=== PATIENT | male | born 1945 | race Caucasian/White ===

== ENCOUNTER → 2016-07-16 | Outpatient (CLI) | payer OTHER ==
[~2016-07-16] VITALS: Ht 182.9 cm; Wt 92.5 kg
[~2016-07-16] MED LIST: ALLOPURINOL 30300 M1 PO; AMARYL4 MG PO; ASPIRIN EC81 M1 PO; ATORVASTATIN CA40 MG PO; CARAFATE 1 GM TA1 G1 PO; CIPROFLOXACIN500 M1 PO; GLUCOPHAGE1000 MG PO; GLUCOPHAGE500 MG PO; LISINOPRIL-HCT1 EAC1 PO; LOVASTAT20 PO; LOVASTAT40 PO; PRINZIDE 20-121 EACH PO; PROTONIX40 M2 PO
--- NOTE | ~2016-07-16 | CATHLAB ---
[facility] [address] [place] [address] INVASIVE PROCEDURE REPORT Name: KASI EVERETT Room #: REG CHARLIE Castillo#: [id number] Admission: 07/16/16 Attend Phys: Gianni Montilla, Discharge: Date of : 45 Date of Service: 07/16/16 0844 Report #: [id number] THIS REPORT FOR: //name// CC: Gianni Hinkle MD PROCEDURES: Left ventriculography, coronary angiography, abdominal aortography and unilateral lower extremity runoff. DESCRIPTION OF PROCEDURE: The patient brought to the catheterization lab with history of intermittent cardiomyopathy and abnormal nuclear test. Right groin prepped and draped in sterile manner. Extensively calcified femoral artery was able to cannulate eventually with a low-profile sheath. All exchanges over the wire. Straight pigtail catheter performed a single HORN ventriculogram and AP aortogram. Mildly ectatic aorta. LV function lower limits of normal, EF 50%. FL4 left coronary system, FR4 right coronary system. Multiple views and obliques were taken. Mild plaquing in the right dominant system. There was no significant occlusive disease noted. The distal aorta had what appeared to be extended from the distal aspect into the bilateral iliac system. Bilateral iliac arteries are blnsye-nz-rtgprkdlqi diseased and the external iliacs distal to the stents were calcified, but widely patent. I was not able to evaluate the left side. The right side through the vascular sheath did reveal mild disease and then a proximal SFA occlusion, which reconstitutes at the adductor canal through collateral filling. Well-preserved vessel at that point in 2 moderate diffuse disease in the trifurcation. It looks like the perineal branch is the best preserved and the posterior tibial branch also fills. The anterior tibial artery appears to be occluded. This is on the right lower extremity. Vascular sheath was removed with manual pressure. No indication for coronary intervention. We will evaluate the peripheral vasculature with Dr. Silver, who has previously seen this patient. Hemodynamically stable and pain-free. HEMODYNAMICS: Aortic 168/56, LV 160/8. IMPRESSION: 1. Left main, free of disease, giving rise to left anterior descending and circumflex. 2. Left anterior descending with mild plaquing proximal calcification extends around the apex. 3. Circumflex obtuse marginal is nondominant with mild disease. 4. Dominant right also minimal plaquing, giving rise to posterior descending artery. 5. Normal left ventricular size and systolic function lower limits of normal, EF 50%. 6. Abdominal aorta is intact with no aneurysm. Renal arteries are patent. Previously placed stents are into the distal aorta and extend of the common iliacs. These are patent bilaterally. [facility] [address] [place] [address] INVASIVE PROCEDURE REPORT Name: KASI EVERETT LESMARGE Room #: REG CL Anna#: [id number] Admission: 07/16/16 Attend Phys: Gianni Montilla, Discharge: Date of : 45 Date of Service: 07/16/16 0844 Report #: [id number] 7. Moderate disease in bilateral common femoral arteries with calcification extensively. 8. Right superficial femoral artery proximally occludes, reconstitutes at the adductor canal. 9. It looks to be single vessel runoff, perhaps one and half vessel runoff with some constitution of the peroneal branch appears to be patent with constitution of the posterior tibial artery. The anterior tibial artery is occluded. This is on the right lower extremity. I did not evaluate the left superficial femoral artery segment. RECOMMENDATIONS: Continue aggressive risk factor modification. We will do further evaluation noninvasively. We will continue moderate hydration here. Hold metformin for 48 hours. We would not want to proceed with any further contrast load until we further evaluate the need for any peripheral intervention. The stents in the distal aorta and common iliac are widely patent, with brisk flow. No lifting for 48 hours. No lying in tub, Jacuzzi or Castro for a week. Restart metformin 48 hours. <ELECTRONICALLY SIGNED> By: Gianni Montilla MD, FACC 07/18/16 1601 0844 1420 Gianni Montilla MD, FACC /nt
[2016-07-16 07:32] VITALS: BP 164/66
== END | disposition home or self-care (01) ==
LOC: CATH 06:46
DX: I25.10 Atherosclerotic heart disease of native coronary artery without angina pectoris (principal); I42.9 Cardiomyopathy, unspecified

== ENCOUNTER → 2016-12-16 | Outpatient (CLI) | payer OTHER ==
[~2016-12-16] VITALS: Ht 182.9 cm; Wt 94.3 kg
[~2016-12-16] MED LIST changes: +ZESTORETIC 20-1 EAC3 PO
--- NOTE | ~2016-12-16 | S ---
[facility] [address] SURGICAL PATH RPT PROCEDURE Name: KASI CHA Room #: REG CHARLIEEfrain Castillo#: [id number] Admission: 12/16/16 Date of : 45 Discharge: Report #: [id number] Path Case #: [id number] PATHOLOGY REPORT COLLECTION DATE: 12/16/2016 RECEIVED DATE: 12/16/2016 SUBMITTING PHYS: Dr. Perry Howe OTHER PHYS: Dr. 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 - Squamous mucosa with reactive changes. COMMENT: Co-review: Dr. Vika Duncan. (IUV:mml; 12/17/2016) PATHOLOGIST: Janneth Maza M.D. REPORT ELECTRONICALLY SIGNED BY: Janneth Maza M.D. DATE/TIME: 12/17/2016 16:45 * * * * * * * * * * * * GROSS PATHOLOGY: Received in formalin labeled "Kasi Cha, distal esophagus," and additionally labeled on the requisition as "r/o Last's esophagus," are 4 segments of madrigal soft tissue measuring 1.1 x 0.6 x 0.2 cm in aggregate dimensions and ranging from 0.2 to 0.5 cm in maximum dimension. The specimen is submitted entirely in cassette A1. (TSD; 12/16/2016) CLINICAL HISTORY: Last's esophagus INITIAL CPT CODE(S): A; 75121 Professional services performed by [facility] at [facility] [address], [place] [address] [facility] [address] [place] [address] SURGICAL PATH RPT PROCEDURE Name: KASI CHA Room #: REG CLI Brett.#: [id number] Admission: 12/16/16 Date of : 45 Discharge: Report #: [id number] Path Case #: [id number] Technical services performed by [facility] at [address] [place] [address], [facility] [address], [place] [address]. [facility] [address] [place] [address] PHONE: [phone] DIRECTOR: Galen Feliz M.D. * * * END OF REPORT * * *
--- NOTE | ~2016-12-16 | P ---
[facility] [address] [address] [place] [address] PROCEDURE REPORT Name: KASI EVERETT Room #: REG MARKEL Castillo#: [id number] Admission: 12/16/16 Attend Phys: Perry Gonzalez Discharge: Date of : 45 Report #: [id number] THIS REPORT FOR: //name// CC: Perry Hinkle DATE OF SERVICE: 12/16/2016 PROCEDURE PERFORMED: Upper endoscopy with biopsies. 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 He presents for a 3-year followup. He denies any symptoms at this time. DESCRIPTION OF PROCEDURE: The risks and benefits of the procedure were explained to the patient. Those risks including but not limited to bleeding, perforation, the risk of sedation. He understood these risks and gave informed consent. Sedation was given using propofol per anesthesia. Next, using a standard Managed Methodsn upper endoscope, the scope was placed in the patient's mouth and advanced under direct vision through the esophagus, stomach and into the second portion of the duodenum. The upper and mid esophagus was normal in appearance. In the distal esophagus, once again a 3 cm segment of Last's was noted. Random biopsies were obtained. Distal esophagus was somewhat tortuous. No evidence of esophagitis. Upon entering the stomach, a small hiatal hernia was noted. Overall, the gastric mucosa was normal. The pylorus was normal and patent. The duodenal bulb, first and second portion were all normal. The scope was then withdrawn and the procedure terminated. The patient tolerated the procedure well. IMPRESSION: 1. 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 2. Hiatal hernia. 3. Otherwise, normal upper endoscopy. RECOMMENDATIONS: 1. Await biopsy results. 2. Continue daily Protonix. Thank you for allowing me to participate in his care. <ELECTRONICALLY SIGNED> By: Perry Howe MD 12/17/16 1234 0837 23 Perry Howe MD /nt
== END | disposition home or self-care (01) ==
LOC: GI 06:58
DX: K22.70 Barrett's esophagus without dysplasia (principal); K44.9 Diaphragmatic hernia without obstruction or gangrene; I10 Essential (primary) hypertension; E11.9 Type 2 diabetes mellitus without complications; E78.5 Hyperlipidemia, unspecified; K21.9 Gastro-esophageal reflux disease without esophagitis; M10.9 Gout, unspecified; Z87.891 Personal history of nicotine dependence; Z79.899 Other long term (current) drug therapy; Z98.890 Other specified postprocedural states; Z79.82 Long term (current) use of aspirin
CPT/HCPCS: 62110; 62900

== ENCOUNTER 2019-02-05 19:59 | Emergency (ER) | payer OTHER ==
[~2019-02-05] VITALS: Ht 182.9 cm; Wt 90.7 kg
[2019-02-05] MEDS ORDERED: LISINOPRIL2.5 MG PO (20:04)
[2019-02-05] MEDS ORDERED: CRESTOR20 MG PO (20:04)
[2019-02-05 20:49] VITALS: BP 179/59
[2019-02-05] MEDS ORDERED: DIFLUCAN100 MG PO ×3 (21:03→21:11)
[2019-02-05] MEDS ORDERED: NYSTATIN100000 UNI SW&SWALLOW ×3 (21:03→21:11)
== END 2019-02-05 21:15 | disposition home or self-care (01) ==
LOC: ER 19:59
DX: B37.9 Candidiasis, unspecified (principal); I10 Essential (primary) hypertension; E78.5 Hyperlipidemia, unspecified; E11.9 Type 2 diabetes mellitus without complications; Z98.890 Other specified postprocedural states; M10.9 Gout, unspecified; Z87.891 Personal history of nicotine dependence

== ENCOUNTER 2019-03-22 23:03 | Inpatient (IN) | payer BC, OTHER ==
[~2019-03-22] VITALS: Ht 182.9 cm; Wt 83.2 kg
[~2019-03-22 23:03] MED LIST changes: +CRESTOR20 MG PO; +DIFLUCAN100 MG PO; +LISINOPRIL2.5 MG PO; +NYSTATIN100000 UNI SW&SWALLOW
[2019-03-22 23:06] VITALS: BP 124/72
[2019-03-22 23:26] LABS: HEMATOCRIT 46.8 % (42.0-52.0); HEMOGLOBIN 14.4 gm/dL (14.0-18.0); MCH 27.1 pg (26.0-34.0); MCHC 30.7 g/dL (28.0-37.0); MCV 88.1 fL (80.0-100.0); PLATELET COUNT 279 thou/uL (150-400); RBC 5.31 mil/uL (4.50-6.00); RDW 13.9 % (10.5-14.5); WBC 21.2 thou/uL (4.0-11.0)
[2019-03-22 23:32] LABS: CALCIUM 9.3 mg/dL (8.5-10.1); CREATININE 1.7 mg/dL (0.7-1.3)
[2019-03-22 23:41] LABS: TROPONIN-I 0.33 ng/mL (<0.06)
[2019-03-22 23:47] LABS: APTT 33.4 Seconds (24.5-32.8); INR 1.1; PROTIME 10.9 Seconds (9.3-11.4)
[2019-03-23] VITALS (94 sets, daily range): BP systolic 69–185; BP diastolic 42–120
[2019-03-23 00:13] LABS: ABSOLUTE NEUTROPHILS 2.5 thou/uL (1.4-8.2)
[2019-03-23 00:14] LABS: PLATELET ESTIMATE NORMAL
[2019-03-23 00:58] LABS: PHOSPHORUS 8.9 mg/dL (2.5-4.9)
[2019-03-23 01:08] LABS: BE(vivo) -9.8 mmol/L (-2 to +3); HCO3 19.1 mmol/L (22.0-26.0); PCO2 53.9 mmHg (35.0-45.0); PO2 78.3 mmHg (80.0-100.0); sO2 91.9 % (92.0-98.0)
[2019-03-23 01:09] LABS: pH 7.168 (7.360-7.450)
[2019-03-23 01:34] LABS: D-DIMER 4.47 ug/mLFEU (0.19-0.50); FIBRINOGEN 264.4 mg/dL (210-360)
[2019-03-23 02:30] LABS: BE(vivo) -2.7 mmol/L (-2 to +3); HCO3 23.5 mmol/L (22.0-26.0); PCO2 45.6 mmHg (35.0-45.0); PO2 65.5 mmHg (80.0-100.0); sO2 91.5 % (92.0-98.0)
--- NOTE | 2019-03-23 05:42 | NUR ---
0030 Patient arrived to the unit at approximately 0030 from the ED. 0200 Patient is opening his eyes at this time but is not following commands. Spouse is at bedside. 0245 Hypothermia protocol implemented at this time.
[2019-03-23 06:41] LABS: CALCIUM 9.3 mg/dL (8.5-10.1); CREATININE 1.6 mg/dL (0.7-1.3); MAGNESIUM 2.1 mg/dL (1.8-2.4); POTASSIUM 3.9 mmol/L (3.5-5.1)
[2019-03-23 06:45] LABS: TROPONIN-I 15.08 ng/mL (<0.06)
--- NOTE | 2019-03-23 08:30 | NUR ---
At 0830 PT reached goal temp of 33.0 degrees celsius.
[2019-03-23 08:53] LABS: HEMATOCRIT 30.9 % (42.0-52.0); MCH 27.2 pg (26.0-34.0); MCHC 31.8 g/dL (28.0-37.0); MCV 85.6 fL (80.0-100.0); RDW 13.2 % (10.5-14.5)
[2019-03-23 09:02] LABS: APTT 33.4 Seconds (24.5-32.8); INR 1.6; PROTIME 16.9 Seconds (9.3-11.4)
--- NOTE | 2019-03-23 09:04 | EKG ---
[place] [address] [facility] [place] [address] ELECTROCARDIOGRAM REPORT Name: KASI EVERETT CAMAK Room #: 240-P ADM IN M.R.#: [id number] Admission: 03/23/19 Attend Phys: Arthur Scott MD Discharge: Date of : 45 Report #: [id number] THIS REPORT FOR: //name// [facility] ED Test Date: 2019-03-22 Test Time: 23:07:48 Pat Name: KASI EVERETT Department: Room: 240 Gender: M Assistant Restaurant General Manager: nicola : 1945 Requested By: Elias Yeung Order Number: [id number] MD: Paco Landeros Measurements Intervals [place] Rate: 112 P: -82 FL: 52 QRS: -66 QRSD: 145 T: 118 QT: 361 QTc: 493 Interpretive Statements Sinus tachycardia Atrial premature complex IVCD, consider atypical RBBB LVH with IVCD, LAD and secondary repol abnrm Borderline prolonged QT interval Compared to ECG 09/23/2012 07:43:24 Atrial premature complex(es) now present QRS duration has widened early R-wave progression is present Electronically Signed On 03-23-2019 9:03:51 INJECTION MOULDING MACHINE OPERATOR by Paco Landeros [email or web address] <ELECTRONICALLY SIGNED> By: Paco Landeros MD, FACC 03/23/19 0903 2307 230 Paco Landeros MD, FACC /EPI
--- NOTE | 2019-03-23 09:08 | EKG ---
[address] [address] ELECTROCARDIOGRAM REPORT Name: KASI EVERETT IRINA Room #: 240-P ADM IN M.R.#: [id number] Admission: 03/23/19 Attend Phys: Arthur Scott MD Discharge: Date of : 45 Report #: [id number] THIS REPORT FOR: //name// [facility] Test Date: 2019-03-23 Test Time: 08:50:47 Pat Name: KASI EVERETT Department: Room: 240 P Gender: M Recruiter Manager: SHIRIN : 1945 Requested By: Piper Peterson Order Number: [id number] MD: Paco Landeros Measurements Intervals [place] Rate: 61 P: -34 NV: 148 QRS: -41 QRSD: 146 T: 132 QT: 578 QTc: 583 Interpretive Statements Sinus rhythm Left bundle branch block Leftward axis no previous ECGs available for comparison Electronically Signed On 03-23-2019 9:08:17 PIANO PROFESSOR by Paco Landeros [email or web address] <ELECTRONICALLY SIGNED> By: Paco Landeros MD, [facility] 03/23/19 0908 0850 0850 Paco Landeros MD, FACC /EPI
[2019-03-23 09:16] LABS: HEMOGLOBIN 9.8 gm/dL (14.0-18.0); PLATELET COUNT 98 thou/uL (150-400); WBC 4.4 thou/uL (4.0-11.0)
--- NOTE | 2019-03-23 09:16 | 2DMMODE ---
[facility] [place] [address] 2 D/M-MODE ECHOCARDIOGRAM Name: KASI EVERETT MARGE Room #: 240-P [facility] IN M.R.#: [id number] Admission: 03/23/19 Attend Phys: Arthur Scott, Discharge: Date of : 45 Report #: [id number] THIS REPORT FOR: //name// APPROVED REPORT Study performed: 03/23/2019 08:20:01 EXAM: Comprehensive 2D, Doppler, and color-flow Echocardiogram Patient Location: ICU Room #: 240 Status: routine BSA: 2.14 HR: 63 bpm BP: 162/76 mmHg Rhythm: LBBB Other Information Study Quality: Adequate Technically limited study due to limited mobility, patient on vent. Indications Status post cardiac arrest. CHF. Hx: DM, HTN, HLP. 2D Dimensions RVDd: 37.12 mm IVSd: 14.00 (7-11mm) LVOT Diam: 23.46 (18-24mm) LVDd: 56.46 mm PWd: 14.00 (7-11mm) LVDs: 51.23 (25-40mm) Aortic Root: 43.43 mm Volumes Left Atrial Volume (Systole) Single Plane 4CH: 43.17 mL Single Plane 2CH: 50.32 mL LA ESV Index: 25.00 mL/m2 Aortic Valve AoV Peak Gavin.: 1.11 m/s AO Peak Gr.: 4.92 mmHg LVOT Max P.26 mmHg LVOT Max V: 0.90 m/s ZACHARY Vmax: 3.52 cm2 AI Vmax: 2.86 m/s AI Spalding: 1.70 m/s2 [facility] [address] [place] [address] 2 D/M-MODE ECHOCARDIOGRAM Name: KASI EVERETT Room #: [address] [place] [address] [place] [facility]#: [id number] Admission: 03/23/19 Attend Phys: Arthur Scott, Discharge: Date of : 45 Report #: [id number] AI PHT: 486.47 ms Mitral Valve E/A Ratio: 0.6 MV Decel. Time: 171.82 ms MV E Max Gavin.: 0.44 m/s MV A Gavin.: 0.70 m/s MV PHT: 49.83 ms Tricuspid Valve RAP Estimate: 5.00 mmHg Left Ventricle The left ventricle is normal size. There is global hypokinesis of the left ventricle. Mild concentric left ventricular hypertrophy. Left ventricular systolic function is severely decreased. LVEF is 25%. Mild diastolic dysfunction is present (impaired relaxation pattern). Right Ventricle The right ventricle is normal size. The right ventricular systolic function is normal. Atria The left atrium size is normal. The right atrium size is normal. Aortic Valve The aortic valve is mildly sclerotic Mild aortic regurgitation. There is no aortic valvular stenosis. Mitral Valve The mitral valve is normal in structure. There is no mitral valve regurgitation noted. No evidence of mitral valve stenosis. Tricuspid Valve The tricuspid valve is normal in structure. There is no tricuspid valve regurgitation noted. Unable to assess PA pressure. Pulmonic Valve Pulmonic valve is not well visualized. There is no pulmonic valvular regurgitation. Great Vessels Aortic root is dilated at 4.3cm. Ascending aorta is not well visualized. IVC is normal in size and collapses >50% with [facility] [address] [place] [address] 2 D/M-MODE ECHOCARDIOGRAM Name: KASI EVERETT Room #: 240-P [facility] IN M.R.#: [id number] Admission: 03/23/19 Attend Phys: Arthur Scott, Discharge: Date of : 45 Report #: [id number] inspiration. Pericardium There is no pericardial effusion. <Conclusion> Left ventricular systolic function is severely decreased. There is global hypokinesis of the left ventricle. LVEF is 25%. Mild diastolic dysfunction The aortic valve is mildly sclerotic/ Mild aortic regurgitation, no stenosis. The mitral valve is normal in structure. No mitral valve regurgitation. Unable to assess pulmonary artery pressure. There is no pericardial effusion. <ELECTRONICALLY SIGNED> By: Paco Landeros MD, [facility] 03/23/1915 4 4 Paco Landeros MD, FACC /INF
[2019-03-23 09:40] LABS: ABSOLUTE NEUTROPHILS 2.7 thou/uL (1.4-8.2); METAMYELOCYTES 2 %; PLATELET ESTIMATE NORMAL
--- NOTE | 2019-03-23 10:41 | NUR ---
VASCULAR ACCESS CONSULTED FOR PICC PLACEMENT. PT'S LABS,MEDS,HISTORY,ORDER AND CONSENT VERIFIED. MARK BASILIC WAS WIDELY PATENT WITH USG. TL PICC TRIMMED TO 44CM INSERTED TO 1CM EXTERNAL. STAT CXR ORDERED. PT TOLERATED WELL.
--- NOTE | 2019-03-23 10:58 | NUR ---
CXR CONFIRMED PICC PLACEMENT, PICC RELEASED FOR IMMEDIATE USE TO REJI PERALTA PER PROTOCOL.
[2019-03-23 11:25] LABS: BE(vivo) -7.4 mmol/L (-2 to +3); HCO3 19.8 mmol/L (22.0-26.0); PCO2 45.8 mmHg (35.0-45.0); PO2 92.1 mmHg (80.0-100.0); sO2 95.8 % (92.0-98.0)
[2019-03-23 11:26] LABS: pH 7.253 (7.360-7.450)
[2019-03-23 13:28] LABS: ABSOLUTE NEUTROPHILS 3.7 thou/uL (1.4-8.2); BASOPHILS 0.6 % (0.0-2.0); EOSINOPHILS 0.1 % (0.0-3.0); HEMATOCRIT 43.6 % (42.0-52.0); LYMPHOCYTES 36.1 % (24.0-44.0); MCH 27.1 pg (26.0-34.0); MCHC 32.1 g/dL (28.0-37.0); MCV 84.4 fL (80.0-100.0); MONOCYTES 4.5 % (1.0-8.0); PLATELET COUNT 165 thou/uL (150-400); POLYS 58.7 % (36.0-66.0); RBC 5.17 mil/uL (4.50-6.00); RDW 13.5 % (10.5-14.5); WBC 6.3 thou/uL (4.0-11.0)
[2019-03-23 13:41] LABS: APTT 31.7 Seconds (24.5-32.8); INR 1.1; PROTIME 11.4 Seconds (9.3-11.4)
[2019-03-23 13:48] LABS: CALCIUM 8.9 mg/dL (8.5-10.1); CREATININE 2.1 mg/dL (0.7-1.3); MAGNESIUM 2.7 mg/dL (1.8-2.4)
[2019-03-23 13:50] LABS: POTASSIUM 2.6 mmol/L (3.5-5.1); TROPONIN-I 16.37 ng/mL (<0.06)
--- NOTE | 2019-03-23 16:16 | NUR ---
CM ASSESSMENT: CASE OPENED FOR DC PLANNING. CLINICAL INFO REVIEWED. PT ADMIT THRU ER EARLY AM. AT HOME WITH SPOUSE, CALLED 911 AND ALERT WHEN EMS ARRIVED, THEN LOST CONSCIOUSNESS-WAS IN PEA AND GIVEN EPI. INTUBATED AND NOW ON HYPOTHERMIA PROTOCOL. REQUIRING LEVOPHED FOR BP SUPPORT, ON PROPOFOL GTT AND INSULIN GTT. ECHO DONE AND CURRENT EF 10-15%. PER CARDIOLOGY NOTE, WILL NEED ISCHEMIC W/U PENDIING NEURO STATUS EVAL. PT LIVES WITH SPOUSE, IS RETIRED. INDEPENDENT IN CARE. SPIRITUAL CARE ALERTED TO PT AND FAMILY TO PROVIDE EMOTIONAL SUPPORT. UNCLEAR DC NEEDS AT PRESENT AND CASE MANAGEMENT TO FOLLOW FOR COORDINATION OF ANY DC NEEDS.
--- NOTE | 2019-03-23 18:28 | NUR ---
Resumed are at 0700. PT is on the vent. PT is breathing over the set rate of 18. Adequate sedation with propofol. Levophed gtt titrated to keep MAP between 65-80. Levophed titrated up to 20 and vasopression was initiated to keep MAP above 65. Insulin gtt titrated to keep blood sugars within parameters. NS initiated per Dr. Campuzano and Dr. Elias. Low urine output noted. Providers aware. PT reached goal cooling temp of 33 degress celsius at 0830. Arabella care was provided and the fecal mgmt system was adjusted. A PICC line was inserted in the right upper arm per Dr. Campuzano's order. gave phone consent. CVP monitoring was initiated. Replaced potassium with 40 of IVPB K per Dr. Campuzano. Family present intermittently through the day and were updated on PT condition. Questions answered and they verbalized understanding. Nurse will continue to monitor.
[2019-03-23 18:49] LABS: APTT 31.7 Seconds (24.5-32.8); INR 1.3
--- NOTE | 2019-03-23 19:45 | NUR ---
REVIEWED ALL DOCUMENTATION BY ARTURO HERNANDEZ RN.
[2019-03-23 20:10] LABS: ABSOLUTE NEUTROPHILS 5.6 thou/uL (1.4-8.2); BASOPHILS 0.4 % (0.0-2.0); HEMOGLOBIN 13.6 gm/dL (14.0-18.0); LYMPHOCYTES 36.1 % (24.0-44.0); MCH 27.3 pg (26.0-34.0); MCHC 32.3 g/dL (28.0-37.0); MCV 84.4 fL (80.0-100.0); MONOCYTES 4.1 % (1.0-8.0); PLATELET COUNT 177 thou/uL (150-400); POLYS 59.4 % (36.0-66.0); RBC 4.98 mil/uL (4.50-6.00); RDW 13.5 % (10.5-14.5); WBC 9.5 thou/uL (4.0-11.0)
[2019-03-23 20:33] LABS: CALCIUM 8.6 mg/dL (8.5-10.1); CREATININE 2.4 mg/dL (0.7-1.3); MAGNESIUM 2.3 mg/dL (1.8-2.4); PHOSPHORUS 2.8 mg/dL (2.5-4.9)
[2019-03-23 20:46] LABS: POTASSIUM 2.7 mmol/L (3.5-5.1); TROPONIN-I 12.93 ng/mL (<0.06)
[2019-03-24] VITALS (47 sets, daily range): BP systolic 96–164; BP diastolic 51–73
[2019-03-24 00:06] LABS: GLYCOHEMOGLOBIN (HGB A1C) 8.5 % (4.8-5.6)
[2019-03-24 01:38] LABS: ABSOLUTE NEUTROPHILS 7.5 thou/uL (1.4-8.2); BASOPHILS 0.3 % (0.0-2.0); HEMATOCRIT 40.6 % (42.0-52.0); HEMOGLOBIN 12.7 gm/dL (14.0-18.0); LYMPHOCYTES 33.2 % (24.0-44.0); MCHC 31.3 g/dL (28.0-37.0); MCV 86.1 fL (80.0-100.0); MONOCYTES 2.9 % (1.0-8.0); PLATELET COUNT 184 thou/uL (150-400); POLYS 63.6 % (36.0-66.0); RBC 4.71 mil/uL (4.50-6.00); RDW 13.8 % (10.5-14.5); WBC 11.8 thou/uL (4.0-11.0)
[2019-03-24 01:44] LABS: APTT 38.3 Seconds (24.5-32.8); INR 1.2
[2019-03-24 01:50] LABS: CREATININE 2.6 mg/dL (0.7-1.3); MAGNESIUM 2.1 mg/dL (1.8-2.4); POTASSIUM 3.4 mmol/L (3.5-5.1)
[2019-03-24 02:10] LABS: TROPONIN-I 9.57 ng/mL (<0.06)
[2019-03-24 05:05] LABS: BE(vivo) -13.4 mmol/L (-2 to +3); HCO3 15.9 mmol/L (22.0-26.0); PCO2 49.8 mmHg (35.0-45.0); PO2 169.8 mmHg (80.0-100.0); sO2 98.6 % (92.0-98.0)
[2019-03-24 05:08] LABS: pH 7.121 (7.360-7.450)
[2019-03-24 05:57] LABS: HEMATOCRIT 40.7 % (42.0-52.0); HEMOGLOBIN 13.1 gm/dL (14.0-18.0); MCH 27.3 pg (26.0-34.0); MCHC 32.2 g/dL (28.0-37.0); MCV 84.9 fL (80.0-100.0); PLATELET COUNT 148 thou/uL (150-400); RBC 4.79 mil/uL (4.50-6.00); RDW 13.6 % (10.5-14.5); WBC 12.3 thou/uL (4.0-11.0)
[2019-03-24 06:18] LABS: ALBUMIN 2.3 g/dL (3.4-5.0); CALCIUM 8.3 mg/dL (8.5-10.1); CREATININE 2.6 mg/dL (0.7-1.3); PHOSPHORUS 5.1 mg/dL (2.5-4.9); POTASSIUM 3.4 mmol/L (3.5-5.1); TOTAL BILIRUBIN 0.8 mg/dL (<0.1-1.0); TOTAL PROTEIN 5.9 g/dL (6.4-8.2)
--- NOTE | 2019-03-24 06:29 | NUR ---
Received report from offgoing RN and assumed patient care. Patient continues to be on hypothermia protocol and has Levophed and Vasopressin infusing along with an insulin drip and Propofol for sedation. Patient had 17 beats of V-tach and Dr. Montilla was notified. updated on care plan. Patient monitored closely throughout this shift.
[2019-03-24 06:57] LABS: ABSOLUTE NEUTROPHILS 8.4 thou/uL (1.4-8.2)
[2019-03-24 06:58] LABS: ANISOCYTOSIS 1+; PLATELET ESTIMATE DECREASED; POIKILOCYTOSIS 1+
--- NOTE | 2019-03-24 10:00 | NUR ---
DR. LIU CALLED THIS RN. STATES HE WILL LEAVE ALL OF THE FLUIDS THE SAME AND WILL ORDER SOME LASIX.
--- NOTE | 2019-03-24 10:09 | NUR ---
Nutrition: Pt NPO day 2. Consider initiation of enteral feeds as appropriate. Glucerna 1.2 to reach goal 75 mL/hr will meet needs.
[2019-03-24 11:26] LABS: BE(vivo) -6.4 mmol/L (-2 to +3); HCO3 21.5 mmol/L (22.0-26.0); PCO2 52.7 mmHg (35.0-45.0); PO2 119.2 mmHg (80.0-100.0); pH 7.228 (7.360-7.450); sO2 97.6 % (92.0-98.0)
[2019-03-24 11:30] LABS: URINE BILIRUBIN NEGATIVE (Negative); URINE BLOOD TRACE (Negative); URINE CLARITY CLEAR; URINE COLOR YELLOW; URINE GLUCOSE-RANDOM* NEGATIVE (Negative); URINE KETONES NEGATIVE (Negative); URINE LEUKOCYTES 1+ (Negative); URINE NITRITE NEGATIVE (Negative); URINE PROTEIN (DIPSTICK) TRACE (Negative); URINE SPECIFIC GRAVITY 1.025 (1.005-1.035); URINE UROBILINOGEN 0.2 E.U./dl (0.2-1.0)
[2019-03-24 11:33] LABS: URINE CREATININE-RANDOM* 84.2 mg/dL
[2019-03-24 11:47] LABS: AMORPHOUS URATES Moderate /LPF (None Seen); CASTS None Seen /LPF (None Seen); SQUAMOUS 0-3 Few /LPF (0-3); URINE RBC 0-2 Rare /HPF (0-2); URINE WBC 6-15 Few /HPF (0-5)
[2019-03-24 11:48] LABS: BACTERIA 1-9 Few /HPF (None Seen)
--- NOTE | 2019-03-24 11:53 | NUR ---
Called ABG results to DR. Ramirez. No new orders.
[2019-03-24 13:28] LABS: MAGNESIUM 1.9 mg/dL (1.8-2.4); POTASSIUM 3.3 mmol/L (3.5-5.1)
[2019-03-24] MEDS ORDERED: TOPROL XL25 MG PO (13:35)
--- NOTE | 2019-03-24 18:18 | NUR ---
PT OFF OF VASOPRESSIN GTT. STILL ON INSULIN, PROPOFOL,LEVO GTT. RE-WARMING PROCESS BEGAN AT 0840. SERIAL POTASSIUM DRAWN.
--- NOTE | 2019-03-24 19:00 | NUR ---
See Hypothermia flowsheet for hourly temperature readings and notes for 7p-7a shift.
[2019-03-25] VITALS (47 sets, daily range): BP systolic 94–136; BP diastolic 47–78
[2019-03-25 05:06] LABS: BE(vivo) 3.1 mmol/L (-2 to +3); HCO3 26.9 mmol/L (22.0-26.0); PCO2 38.4 mmHg (35.0-45.0); PO2 59.3 mmHg (80.0-100.0); pH 7.463 (7.360-7.450); sO2 92.2 % (92.0-98.0)
[2019-03-25 05:25] LABS: HEMOGLOBIN 11.9 gm/dL (14.0-18.0); MCH 26.7 pg (26.0-34.0); MCHC 32.2 g/dL (28.0-37.0); RBC 4.46 mil/uL (4.50-6.00); RDW 13.6 % (10.5-14.5); WBC 16.7 thou/uL (4.0-11.0)
[2019-03-25 05:50] LABS: ALBUMIN 2.1 g/dL (3.4-5.0); CALCIUM 7.9 mg/dL (8.5-10.1); CREATININE 3.4 mg/dL (0.7-1.3); PHOSPHORUS 5.5 mg/dL (2.5-4.9)
--- NOTE | 2019-03-25 09:38 | EKG ---
[place] [address] [address] [facility] [place] [address] ELECTROCARDIOGRAM REPORT Name: KASI EVERETT Room #: 240-P ADM IN M.R.#: [id number] Admission: 03/23/19 Attend Phys: El Campuzano Discharge: Date of : 45 Report #: [id number] THIS REPORT FOR: //name// [facility] Test Date: 2019-03-24 Test Time: 08:14:31 Pat Name: KASI EVERETT Department: Room: 240 P Gender: M Mercerizer Machine Operator: Hiro ALMONTE : 1945 Requested By: Piper Peterson Order Number: [id number] MD: Paco Landeros Measurements Intervals [place] Rate: 79 P: 41 CO: 463 QRS: -38 QRSD: 141 T: 137 QT: 478 QTc: 549 Interpretive Statements Sinus rhythm Left bundle branch block Leftward axis Prolonged QT interval Compared to ECG 03/23/2019 08:50:47 No significant change was found Electronically Signed On 03-25-2019 9:37:57 TRUSS DRIVER HELPER by Paco Landeros [email or web address] <ELECTRONICALLY SIGNED> By: Paco Landeros MD, [facility] 03/25/19 0937 3 3 Paco Landeros MD, [facility] /EPI
--- NOTE | 2019-03-25 14:47 | NUR ---
CONTINUES ON VENT WEANING FIO2 ABLE. REWARMED YESTERDAY. VASOPRESSIN GTT OFF, CONTINUE ON LEVOPHED, INSULIN AND BICARB AND PROPOFOL GTTS. FOLLOWING SIMPLE COMMANDS AT TIMES PER GENERAL EXPEDITOR. DR. ORELLANA COMMUNICATES WITH SPOUSE. UNCLEAR DC PLAN AT PRESENT.
--- NOTE | 2019-03-25 19:16 | NUR ---
DR. STARKS HERE. REPORTED PT MAY BE WEAKER ON RIGHT. NOC RN HERE. REPORT GIVEN.
--- NOTE | 2019-03-25 19:18 | NUR ---
PT PROGRESING TOWARDS GOALS. FOLLOWING COMMANDS INTERMITTENTLY. INSULIN GTT OFF. TITRATING DOWN ON LEVOPHED.
[2019-03-26] VITALS (32 sets, daily range): BP systolic 100–146; BP diastolic 56–82
[2019-03-26 05:47] LABS: ALBUMIN 2.3 g/dL (3.4-5.0); CALCIUM 7.6 mg/dL (8.5-10.1); PHOSPHORUS 6.9 mg/dL (2.5-4.9); POTASSIUM 5.4 mmol/L (3.5-5.1)
[2019-03-26 05:50] LABS: CREATININE 4.7 mg/dL (0.7-1.3)
--- NOTE | 2019-03-26 05:50 | NUR ---
Able to wean pt off Levophed by 0230; MAP remains >65. Pt running fever, 99.8 F axillary. Urine output adequate, approximately 60 cc per hour after Lasix given. Lungs remain coarse, though suctioning almost nothing per ET tube or orally. Pt still moves all ext. to command except right arm and hand. Leg strength appears equal.
--- NOTE | 2019-03-26 16:44 | NUR ---
CARE TEAM INDICATED THAT NEURO WAS CONSULTED. IT IS ANTICPATED THAT PT WILL REMAIN IN ICU SATUS OVER THE WEEKEND. CM TO FOLLOW INDICATED WITH DC PLANNING.
[2019-03-27] VITALS (24 sets, daily range): BP systolic 111–135; BP diastolic 52–74
[2019-03-27 05:32] LABS: BE(vivo) 5.9 mmol/L (-2 to +3); HCO3 30.3 mmol/L (22.0-26.0); PCO2 43.6 mmHg (35.0-45.0); PO2 103.1 mmHg (80.0-100.0)
[2019-03-27 05:40] LABS: HEMATOCRIT 31.7 % (42.0-52.0); MCH 26.6 pg (26.0-34.0); MCHC 31.6 g/dL (28.0-37.0); MCV 84.3 fL (80.0-100.0); PLATELET COUNT 148 thou/uL (150-400); RBC 3.76 mil/uL (4.50-6.00); RDW 13.7 % (10.5-14.5); WBC 18.1 thou/uL (4.0-11.0)
[2019-03-27 06:01] LABS: ALBUMIN 2.2 g/dL (3.4-5.0); CREATININE 5.5 mg/dL (0.7-1.3); PHOSPHORUS 6.7 mg/dL (2.5-4.9); POTASSIUM 4.2 mmol/L (3.5-5.1); TOTAL BILIRUBIN 1.6 mg/dL (<0.1-1.0); TOTAL PROTEIN 6.1 g/dL (6.4-8.2)
[2019-03-27 06:31] LABS: ABSOLUTE NEUTROPHILS 12.7 thou/uL (1.4-8.2); METAMYELOCYTES 1 %
[2019-03-27 10:53] LABS: BE(vivo) 6.7 mmol/L (-2 to +3); HCO3 31.2 mmol/L (22.0-26.0); PCO2 43.9 mmHg (35.0-45.0); PO2 98.3 mmHg (80.0-100.0); pH 7.469 (7.360-7.450); sO2 97.8 % (92.0-98.0)
--- NOTE | 2019-03-27 13:41 | NUR ---
CHECK WITH DR ORELLANA TO SEE IF OG TUBE OK TO USE FOR TUBE FEEDING. DR ORELLANA GAVE OK.
[2019-03-28] VITALS (12 sets, daily range): BP systolic 106–143; BP diastolic 55–67
[2019-03-28 04:55] LABS: ALBUMIN 2.2 g/dL (3.4-5.0); CALCIUM 8.6 mg/dL (8.5-10.1); PHOSPHORUS 6.5 mg/dL (2.5-4.9)
[2019-03-28 10:38] LABS: BE(vivo) 6.3 mmol/L (-2 to +3); PCO2 51.4 mmHg (35.0-45.0); PO2 108.6 mmHg (80.0-100.0); pH 7.412 (7.360-7.450); sO2 97.9 % (92.0-98.0)
--- NOTE | 2019-03-28 17:02 | NUR ---
ASSESSMENTS AND INTERVENTIONS DOCCUMENTED. PATIENT REMIANS INTUBATED. PATIENT FOLLOWING COMMANDS. WEANING TRIAL DONE TODAY, PATIENT TOLERATED IT BUT NIF WAS LOW. FAMILY UPDATED ABOUT POC.
[2019-03-29] VITALS (24 sets, daily range): BP systolic 109–165; BP diastolic 50–69
--- NOTE | 2019-03-29 02:43 | NUR ---
ASSESSMENTS CHARTED. MEDS GIVEN CHARTED. PATIENT REMAINS INTUBATED THROUGHOUT SHIFT. FOLLOWS COMMANDS APPROPRIATELY. LEFT SIDED WEAKNESS CONTINUES. PATIENT RECEIVING GOAL RATE TUBE FEEDING. DENIED PAIN DURING SHIFT. Q2 TURNS CHARTED. PLAN OF CARE IS TO CONTINUE DIURESING AND PROGRESSING OFF THE VENT.
[2019-03-29 05:26] LABS: HEMATOCRIT 33.1 % (42.0-52.0); HEMOGLOBIN 10.4 gm/dL (14.0-18.0); MCH 27.2 pg (26.0-34.0); MCHC 31.5 g/dL (28.0-37.0); MCV 86.3 fL (80.0-100.0); RBC 3.84 mil/uL (4.50-6.00); RDW 13.4 % (10.5-14.5); WBC 8.4 thou/uL (4.0-11.0)
[2019-03-29 05:46] LABS: ALBUMIN 2.1 g/dL (3.4-5.0); CALCIUM 8.6 mg/dL (8.5-10.1); CREATININE 5.5 mg/dL (0.7-1.3); PHOSPHORUS 6.3 mg/dL (2.5-4.9); POTASSIUM 4.6 mmol/L (3.5-5.1); TOTAL BILIRUBIN 1.1 mg/dL (<0.1-1.0); TOTAL PROTEIN 6.4 g/dL (6.4-8.2)
--- NOTE | 2019-03-29 10:23 | NUR ---
If pt not able to extubate, recommend new TF goal rate of 50ml/hr
[2019-03-29 11:45] LABS: BE(vivo) 6.9 mmol/L (-2 to +3); HCO3 32.9 mmol/L (22.0-26.0); PCO2 53.3 mmHg (35.0-45.0); PO2 92.3 mmHg (80.0-100.0); pH 7.408 (7.360-7.450)
--- NOTE | 2019-03-29 19:23 | NUR ---
pt self extabated at 0955 along with og tube. pt stable throughout day on nasal cannula at 2/3 L. family was on floor shorty after. physican informed. no IVF running. FMS/nelson in place. pt folling commands. right sided weaknes, plan for MRI in AM, MRI fax sent.
[2019-03-30] VITALS (13 sets, daily range): BP systolic 115–166; BP diastolic 54–67
--- NOTE | 2019-03-30 03:58 | NUR ---
Pt has been resting well, he does awaken with cares, his speech is improving, but is still having mild coughing with even the smallest amount of water with oral cares. Monitor reads SR, occasional BBB/PVC's, VSS, and afebrile. He remains on O2 at 2 L/m, adequate sats, diminished breath sounds. Active bowel sounds are noted, flexiseal in place. Henning is averaging approx 50 ml's/hr of clear yellow urine to DD. Fall precautions are being followed and pt is progressing on his plan of care.
[2019-03-30 05:03] LABS: ALBUMIN 2.3 g/dL (3.4-5.0); CALCIUM 8.9 mg/dL (8.5-10.1); CREATININE 5.7 mg/dL (0.7-1.3); PHOSPHORUS 6.4 mg/dL (2.5-4.9); POTASSIUM 4.9 mmol/L (3.5-5.1)
--- NOTE | 2019-03-30 10:25 | NUR ---
PATIENT MORE ALERT THIS MORTING, FORGETFUL AT TIMES. RIGHT ARM AND LEG WEAKNESS, ABLE TO ELECTRONIC ENGINEERING DRAFTSPERSON HAND. MRI COMPLETED. PLAN OF CARE DISCUSSED WITH FAMILY. NO SIGNS OF ACUTE DISTRESS NOTED AT THIS TIME. REPORT GIVEN TO ONCOMING RN. PATIENT TRANSFERRED TO CCU.
--- NOTE | 2019-03-30 12:11 | NUR ---
CARE TEAM INDICATED THAT PT HAD SELF EXTUBATED HIMSELF. PT TO HAVE MRI THIS DAY. PT WAS TRANSFERED FROM ICU TO CCU RM 219. THERAPY TO EVAL. CARE TEAM MENTIONED POSSIBLE EVAL FOR ACUTE REHAB. CM TO FOLLOW INDICATED WITH DC PLANNING.
--- NOTE | 2019-03-30 19:59 | NUR ---
ASSUMED CARE [id number], TRANFER FROM ICU, SHIFT ASSESSMENT DONE. SR ON MONITOR, 2LNC. RIGHT SIDED WEAKNESS, ABDUL IN PLACE. DENIES PAIN, NAUSEA, VOMITING. BEDBOUND FOR NOW. NSR WITH BBB ON MONITOR. HAD A BM, INCONTINENT OF BOWEL. ON NECTAR THICK LIQUID AND PUREED DIET, NEEDS TO BE FEED. ACHS, BLOOD SUGAR AWAS 392 FOR DINNER, DR ORELLANA CALLED, ORDER RECEIVED TO CHANGE FLUIDS TO D5 0.5 NS AT 75 MLS/ HR. WILL CONTINUE TO ASSESS AND ASSIST WITH ADLs NEEDED.
[2019-03-31 00:05] VITALS: BP 137/65
[2019-03-31 04:22] VITALS: BP 150/48
--- NOTE | 2019-03-31 05:07 | NUR ---
ASSUMED CARE AT 1900. PT WAS TRANSFERRED FROM ICU. A0 X 1. PT VERY PLEASANT BUT CONFUSED. PT DENIES PAIN. ON D5 1/2 NS FLUIDS AT 75MLS/HR. Q2 TURNS. PT EXHIBITS SLOWNESS IN RESPONSE. VITALS STABLE. DENIES N/V/D. DENIES CHEST PAIN. NO FURTHER C/O REPORTED. WILL CONTINUE TO FOLLOW POC.
[2019-03-31 05:08] LABS: ALBUMIN 2.2 g/dL (3.4-5.0); CALCIUM 8.6 mg/dL (8.5-10.1); CREATININE 4.9 mg/dL (0.7-1.3); PHOSPHORUS 4.5 mg/dL (2.5-4.9); POTASSIUM 4.1 mmol/L (3.5-5.1)
--- NOTE | 2019-03-31 07:32 | HC ---
[facility] [place] [address] [place] [address] CONSULTATION Name: KASI EVERETT Room #: 219-P ADM IN M.R.#: [id number] Admission: 03/23/19 Attend Phys: El Campuzano Discharge: Date of : 45 Report #: [id number] THIS REPORT FOR: //name// CC: Arthur Hinkle REASON FOR CONSULTATION: Acute kidney injury, status post cardiac arrest. REASON FOR PRESENTATION: Post-cardiac arrest. HISTORY OF PRESENT ILLNESS: This was obtained from the medical chart. The patient is currently intubated and going through the hypothermia protocol. He is a 73-year-old who is followed by Dr. Montilla due to cardiomyopathy and mild coronary artery disease. He has a history of congestive heart failure with ejection fractions of around 25%. He is also known to have hypertension, diabetes mellitus, and hypertension. He reported to his some chest pain and shortness of breath. EMS was called. On arrival of the EMS, the patient was alert and oriented; however, he went into an unresponsive status in the presence of the EMS staff. Initial monitor revealed PA. The patient was given one round of epinephrine and CPR was initiated. The patient's creatinine on presentation one was 1.6. Hypothermia protocol was initiated. The patient was admitted to the ICU. He is currently running into some issues with low urine output. He is maintained on 2 pressors. I am being consulted to manage his acute kidney injury. HOME MEDICATIONS: 1. Lisinopril. 2. Metformin. 3. Glimepiride. 4. Crestor. PAST MEDICAL HISTORY: 1. Cardiomyopathy. 2. Coronary artery disease. 3. Peripheral vascular disease. 4. Carotid arterial disease. 5. Hypertension. 6. Post-cardiac arrest. 7. Diabetes mellitus, maintained on metformin. 8. Multiple coronary procedures in the past. 9. Bilateral iliac occlusions with stents. 10. Distal aortic stents. 11. Last's esophagus. 12. Hiatal hernia repair. REVIEW OF SYSTEMS: Unobtainable given the patient's current mental status. [facility] [address] [address] CONSULTATION Name: MARGUERITEKASI Room #: 219-P [facility] IN M.R.#: [id number] Admission: 03/23/19 Attend Phys: El Campuzano Discharge: Date of : 45 Report #: [id number] SOCIAL HISTORY: He lives with his . No reported drug or alcohol abuse. ALLERGIES: Per medical records, none. FAMILY HISTORY: Unobtainable given the patient's current mental status. PHYSICAL EXAMINATION: GENERAL: The patient is currently intubated on 2 pressors. VITAL SIGNS: Blood pressure is 112/53. HEAD AND NECK: ET tube in place. CHEST: Decreased air entry bilaterally. CARDIOVASCULAR: No rub detected. ABDOMEN: Soft, nontender. EXTREMITIES: Lower extremities, +3 edema. LABORATORY DATA: Reviewed. White blood cell count 12.3, platelet 148. Blood gas from today showed a pH of 7.1 with a lactate of 5.6. Sodium was 142, potassium was 3.4, BUN is 22, creatinine is 2.6, and phosphorus is 5.1. Chest x-ray reviewed with very mild vascular congestions. IMPRESSION AND PLAN: 1. Acute kidney injury. 2. Chronic kidney disease. 3. Status post cardiac arrest. 4. Cardiomyopathy. 5. Respiratory failure. 6. Hypokalemia. 7. Diabetes mellitus. 8. Peripheral vascular disease with multiple stents placement in the past. 9. We will initiate the appropriate workup for his acute kidney injury; however, this all seems to be ATN related to his cardiac arrest. 10. Continue with the current pressors. 11. The patient is being rewarmed. 12. Full evaluation will be carried out after the rewarming process is completed. 13. Bicarbonate drip was initiated for his acidosis. 14. Severe cardiomyopathy compromising his overall condition. 15. Replace potassium. 16. Initiate IV diuresis. <ELECTRONICALLY SIGNED> By: Nancy Elias MD 03/31/19 0732 [id number] Nancy Elias MD /nt
[2019-03-31 08:00] VITALS: BP 149/79
[2019-03-31 11:55] VITALS: BP 153/58
[2019-03-31 16:37] VITALS: BP 149/56
--- NOTE | 2019-03-31 17:29 | NUR ---
ASSUMED CARE AT 0700, SHIFT ASSESSMENT DONE, MEDS GIVEN, VSS. ACHS, COVERAGE PER PROTOCOL. RIGHT SIDED WEAKNESS, ON 2L NC, ABDUL IN PLACE, ADEQUAATE URINE OUTPUT, BM TODAY. NSR ON TELE. Q2 TURNS, WILL CONTINUE TO ASSESS AND ASSIST WITH ADLs NEEDED.
[2019-03-31 19:55] VITALS: BP 127/60
[2019-04-01 03:14] VITALS: BP 144/84
[2019-04-01 03:54] LABS: ALBUMIN 2.3 g/dL (3.4-5.0); CALCIUM 9.3 mg/dL (8.5-10.1); CREATININE 4.5 mg/dL (0.7-1.3); PHOSPHORUS 3.7 mg/dL (2.5-4.9); POTASSIUM 3.5 mmol/L (3.5-5.1)
--- NOTE | 2019-04-01 04:10 | NUR ---
Assumed care at 1900. pt alert x 3 . intermittent confusion. Denies pain. Denies SOB, no chest pain reported. Pt incontinent x 2 Diarrhea.q2 turns done. pt concern is to dc soon as possible. Noted beginning of skin breakdown to the bottom. No open sores, barrier cream applied. Will continue with current plan of care.
[2019-04-01 08:00] VITALS: BP 155/55
[2019-04-01 12:00] VITALS: BP 154/57
--- NOTE | 2019-04-01 14:05 | NUR ---
Case discussed with the care team. [facility] can accept the pt and pt is agreeable for rehab stay pending insurance approval. [facility] has a bed today and [facility] is submitting auth request today. The attending is agreeable if auth obtained.
[2019-04-01 16:00] VITALS: BP 158/58
--- NOTE | 2019-04-01 19:35 | NUR ---
ASSUMED CARE AT 0700, SHIFT ASSESSMENT DONE, MEDS GIVEN, VSS. BLOOD SUGAR WAS HIGH THIS AM AND FOR LUNCH, DR ORELLANA INFORMED, SLIDING SCALE INCREASED TO MODERATE DOSE. RIGHT SIDED WEAKNESS, INCONTINENT OF BOWEL, HAD THREE BM TODAY. NSR ON TELE, REMAINS ON 2LNC. WILL CONTINUE TO ASSESS AND ASSIST WITH ADLs NEEDED.
[2019-04-01 19:37] VITALS: BP 134/50
[2019-04-02 04:15] VITALS: BP 169/56
[2019-04-02 04:41] LABS: ALBUMIN 2.3 g/dL (3.4-5.0); CALCIUM 8.7 mg/dL (8.5-10.1); CREATININE 3.9 mg/dL (0.7-1.3); PHOSPHORUS 4.2 mg/dL (2.5-4.9); POTASSIUM 3.3 mmol/L (3.5-5.1)
--- NOTE | 2019-04-02 07:41 | NUR ---
ASSUMED PT CARE AT 1900, PT ALERT AND ORIENTED MAKES NEEDS KNOWN, ASSESSMENTS CHARTED, NO COMPLIANS OF PAIN, WILL CONTINUE TO MONITOR
[2019-04-02 08:00] VITALS: BP 16/57
--- NOTE | 2019-04-02 12:15 | NUR ---
ASSUMED CARE AT 0700, SHIFT ASSESSMENT DONE, MEDS GIVEN, VSS. DENIES PAIN, NAUSEA, VOMITING. WORKED WITH PHYSICAL AND OCCUPATIONAL THERAPHY, TRANSFERRED TO THE COMMODE WITH 2 PERSON ASSIST. RECEIVING IV FLUIDS FOR HIGH SODIUM, REMAINS ON 2L NC. WILL CONTINUE TO ASSESS AND ASSIST WITH ADLs NEEDED.
[2019-04-02 12:20] VITALS: BP 154/50
--- NOTE | 2019-04-02 12:57 | NUR ---
CALL RECEIVED FROM PATIENT'S INSURANCE THIS DATE. SPOKE WITH SUN PHONE [phone]. PATIENT IS APPROVED FOR 7 DAYS FOR ACUTE REHAB. LIAISON WAS INFORMED THAT [facility] NOT IN NETWORK WITH PATIENT'S INSURANCE AND WOULD BE PAID AT 50% WHERE IN-NETWORK FACILTIY IS PAID AT 80%. AUTHORIZATION CAN BE TRANSFERRED TO IN-NETWORK FACILITY BY CALLING SUN AT ABOVE NUMBER. [employer] SALES BEAUTY ADVISOR INFORMED.
--- NOTE | 2019-04-02 13:30 | NUR ---
Insurance auth obtained and the hospital will match benefits with is plan per the [facility] liason. Care team updated. Pt is aware of dc to [facility] today and agreeable. updated via phone.
[2019-04-02] MEDS ORDERED: LIPITOR40 MG PO (13:33)
[2019-04-02] MEDS ORDERED: AMLODIPINE BESY10 MG PO (13:33)
[2019-04-02] MEDS ORDERED: ELIQUIS5 MG PO (13:33)
[2019-04-02] MEDS ORDERED: METOPROLOL SUCC50 MG PO (13:33)
[2019-04-02] MEDS ORDERED: PACERONE 200 M200 M1 PO (13:33)
--- NOTE | 2019-04-02 13:44 | EEG ---
[facility] [place] [address] ELECTROENCEPHALOGRAM Name: KASI EVERETT Room #: 219-P ADM IN M.R.#: [id number] Admission: 03/23/19 Attend Phys: El Oates Discharge: Date of : 45 Report #: [id number] THIS REPORT FOR: //name// CC: El Hinkle DATE OF SERVICE: 03/25/2019 This patient is being evaluated for hypoxic encephalopathy. EEG was done by placing the electrode by standard 10-20 system of electrode placement. Both referential and sequential montages were used for recording. A lot of electronic artifact is present, but well-defined cortical activity is seen. It appeared to be about 5-6 Hz. The patient was drowsy and it became slower. Throughout the record, no active epileptiform activity was noticed. IMPRESSION: This patient's EEG is difficult to interpret because of the artifact, but it demonstrates well-defined cortical activity on both sides. Thank you very much for this referral. <ELECTRONICALLY SIGNED> By: Christ Jama MD 04/02/19 1344 9 Christ Jama MD /nt
--- NOTE | 2019-04-02 13:44 | HC ---
[facility] [place] [address] [place] [address] CONSULTATION Name: KASI EVERETT Room #: 219-P ADM IN M.R.#: [id number] Admission: 03/23/19 Attend Phys: El Campuzano Discharge: Date of : 45 Report #: [id number] THIS REPORT FOR: //name// CC: El Hinkle DATE OF SERVICE: 03/25/2019 HISTORY OF PRESENT ILLNESS: This is a 73-year-old male patient who was seen by me to prognosticate this patient for hypoxic encephalopathy. This patient is unable to provide any history. I talked to the nurses. There is no family member available. It looks like this patient was admitted on 03/22/2019 with a cardiac arrest. He underwent a cooling protocol and Neurology consult is being requested for prognostication in that regard. According to the nurses, the patient is not on sedation. He has become progressively more responsive during the day. On my examination, also he is able to follow simple commands. The worrisome feature was that he did not success coach with the right hand. He did success coach with the left hand. He is still on Levophed, but that is being tapered off. Blood pressure is somewhat low, but in acceptable range. REVIEW OF SYSTEMS: Indicates that this patient is being followed by multiple consultants. He had acute kidney injury for which he is being followed by Nephrology. He is being followed by a potable water treatment operator with cardiomyopathy. He has a history of hypertension. He does have a history of diabetes, peripheral vascular disease, Last's esophagus and now he is post-cardiac arrest. This was his relevant 14-point review of system, the best I can tell. PAST MEDICAL HISTORY: Positive for cardiac problem. FAMILY HISTORY: Unavailable. SOCIAL HISTORY: Also unavailable except from the record and apparently there is no drug or alcohol abuse and he lives with his . PHYSICAL EXAMINATION: Indicates that he is able to follow simple commands. He did reasonably persistently but he did not follow any complex command. He moved his eyes in multiple directions. He moved both his legs, although he was very weak there. He moved his left arm somewhat, but he did not move his right arm, but it is difficult to confirm because his cooperation is not very poor. He is still intubated. He is still on Levophed. His vital signs indicate last blood pressure 108/63, respiration is 28, pulse is 110. LABORATORY DATA: Indicates a white count of 16.7. He did not have any imaging study of the brain. IMPRESSION: Hypoxic encephalopathy from which [place] [address] CONSULTATION Name: KASI EVERETT Room #: 219-P [facility] IN M.R.#: [id number] Admission: 03/23/19 Attend Phys: El Campuzano Discharge: Date of : 45 Report #: [id number] Somewhat worrisome feature is that he does appear to have some focality as he did not success coach with the right hand at all, where he did success coach some with the left hand. Because of that, a noncontrast CT of the head should be done. He needs to be cleared by Cardiology and fabrication supervisor and hospitalist need to feel comfortable to send him down. If he did have a stroke, there is a little thing you can do because the timing of the onset may be on when he arrested, but we need to make sure there is no hemorrhage or no other situation. If the stroke can be excluded, then the focal causes can be considered and sometime repeat examination is different. We will follow this patient along with you, and hopefully, once Cardiology, fabrication supervisor and patient experience coordinator clear, we can do a noncontrast CT of the head. It maybe tomorrow because he needs to come off his Levophed preferably and needs to be stable as far as the blood pressure is concerned. Thank you very much for this referral. <ELECTRONICALLY SIGNED> By: Christ Jama MD 04/02/19 1344 [id number] [id number] Christ Jama MD /nt
--- NOTE | 2019-04-02 15:55 | NUR ---
ASSUMED CARE OF PT APPROX 1330, A&0X4, NO C/O PAIN OR ANY OTHER NEEDS THAN A SNACK. EDU ON CHEWING AND HAVING SMALL BITES AND SETTING THE FOOD DOWN WHILE CHEWING. RLE, NOTED BY PT, 'BOGGY' AND SLIGHLY PAINFUL TO TOUCH, NO OPEN AREAS. REPOSITIONING EVERY 2H AT LEAST EVEN WITH SMALL POSITION CHANGES. HES AN ASSIST X2 FOR TRANSFERS. SLIGHTLY FORGETFUL. ABDUL CATH IN PLACE FOR STRICT I&0. PT CAN ANSWER MOST QUESTIONS THEN SEEMS FORGETFUL ON AMB STATUS PRIOR TO ADMISSION AND ON CONTINENCE (IN LAYMENS TERMS). ENCOURAGED HIM TO USE CALL LIGHT FOR ANY NEEDS AND HE DOES RETURN DEMO SUCCESSFULLY
[2019-04-02 16:00] VITALS: BP 155/52
== END 2019-04-02 18:02 | DRG 207 ==
LOC: ER → EROBS 03-23 00:26 → 2N 03-23 00:26 → ICU 03-23 00:26 → 2N 03-23 00:26 → ICU 03-23 00:30 → 2N 03-30 10:23
PROVIDERS: Emergency Medicine; Hospitalist; Internal Medicine; Internal Medicine Nephrology; Internal Medicine Pulmonary Disease; Nurse Practitioner Family; Pediatrics; ADMIT Hospitalist
PROC: 0BH17EZ Insertion of Endotracheal Airway into Trachea, Via Natural or Artificial Opening (ICD-10-PCS; principal; 2019-03-23)
PROC: 02HV33Z Insertion of Infusion Device into Superior Vena Cava, Percutaneous Approach (ICD-10-PCS; principal; 2019-03-23)
PROC: 5A1955Z Respiratory Ventilation, Greater than 96 Consecutive Hours (ICD-10-PCS; principal; 2019-03-23)
PROC: B548ZZA Ultrasonography of Superior Vena Cava, Guidance (ICD-10-PCS; principal; 2019-03-23)
DX: J96.21 Acute and chronic respiratory failure with hypoxia (principal); I46.9 Cardiac arrest, cause unspecified; N17.0 Acute kidney failure with tubular necrosis; I63.532 Cerebral infarction due to unspecified occlusion or stenosis of left posterior cerebral artery; I42.9 Cardiomyopathy, unspecified; G93.1 Anoxic brain damage, not elsewhere classified; I13.0 Hypertensive heart and chronic kidney disease with heart failure and stage 1 through stage 4 chronic kidney disease, or unspecified chronic kidney disease; E87.2 Acidosis; G81.91 Hemiplegia, unspecified affecting right dominant side; E87.0 Hyperosmolality and hypernatremia; J96.22 Acute and chronic respiratory failure with hypercapnia; E11.22 Type 2 diabetes mellitus with diabetic chronic kidney disease; E78.5 Hyperlipidemia, unspecified; E11.51 Type 2 diabetes mellitus with diabetic peripheral angiopathy without gangrene; K22.70 Barrett's esophagus without dysplasia; I95.9 Hypotension, unspecified; E87.6 Hypokalemia; J44.9 Chronic obstructive pulmonary disease, unspecified; I25.10 Atherosclerotic heart disease of native coronary artery without angina pectoris; I50.9 Heart failure, unspecified; E11.65 Type 2 diabetes mellitus with hyperglycemia; K21.0 Gastro-esophageal reflux disease with esophagitis; E87.5 Hyperkalemia; R13.10 Dysphagia, unspecified; I35.8 Other nonrheumatic aortic valve disorders; I48.0 Paroxysmal atrial fibrillation; Z95.820 Peripheral vascular angioplasty status with implants and grafts; Z79.899 Other long term (current) drug therapy; Z79.84 Long term (current) use of oral hypoglycemic drugs; Z95.5 Presence of coronary angioplasty implant and graft; Z87.891 Personal history of nicotine dependence; Z83.3 Family history of diabetes mellitus; Z82.49 Family history of ischemic heart disease and other diseases of the circulatory system
CPT/HCPCS: 10078; 10081; 27000

== ENCOUNTER 2019-04-02 14:03 | Inpatient (IN) | payer BC, OTHER ==
[~2019-04-02] VITALS: Wt 86.9 kg
[~2019-04-02 14:03] MED LIST changes: +AMLODIPINE BESY10 MG PO; +ELIQUIS5 MG PO; +LIPITOR40 MG PO; +METOPROLOL SUCC50 MG PO; +PACERONE 200 M200 M1 PO; +TOPROL XL25 MG PO
[2019-04-02 19:18] VITALS: BP 134/53
--- NOTE | 2019-04-02 21:37 | NUR ---
PT ADMITTED TO UNIT AT APPROXIMATELY 1800. REPORT RECEIVED FROM KATHRYN MENDOZA PRIOR TO PT BEING TRANSFERED TO UNIT. SIGNED CONSENTS WHILE ON UNIT. PT DENIES PAIN. PT ORIENTED TO UNIT. BEDSIDE REPORT WITH ONCOMING NURSE DISCUSSED REPORT FROM PREVIOUS NURSE AND ORDERS. FALL PRECAUTIONS IN PLACE AND NURSING WILL CONTINUE TO MONITOR.
--- NOTE | 2019-04-03 03:05 | NUR ---
PT ASSESSMENT COMPLETED AND VSS. MEDS GIVEN ORDERED AND WELL TOLERATED. FALL PRECAUTIONS IN PLACE. ABDUL DRAINING MODERATE AMOUNT OF YELLOW URINE. SLEEPING. DENIES NEEDS. TOLERATING NECTOR THICK LIQUIDS. WILL CONTINUE TO MONITOR FREQUENTLY.
[2019-04-03 05:50] LABS: HEMATOCRIT 27.9 % (42.0-52.0); HEMOGLOBIN 8.9 gm/dL (14.0-18.0); MCV 87.5 fL (80.0-100.0); RBC 3.19 mil/uL (4.50-6.00); RDW 13.6 % (10.5-14.5); WBC 10.6 thou/uL (4.0-11.0)
[2019-04-03 06:09] LABS: ALBUMIN 2.2 g/dL (3.4-5.0); CALCIUM 8.9 mg/dL (8.5-10.1); CREATININE 3.4 mg/dL (0.7-1.3); PHOSPHORUS 3.5 mg/dL (2.5-4.9); POTASSIUM 3.2 mmol/L (3.5-5.1)
[2019-04-03 09:00] VITALS: BP 153/67
--- NOTE | 2019-04-03 14:30 | NUR ---
ASSUMED CARE AT 0700. PATIENT IS ALERT AND ORIENTED X2. PATIENT IS VERY FORGETFUL. PATIENT HAS RIGHT SIDED WEAKNESS. LUNGS ARE DEMINISHED. PATIENT HAS RIGHT PICC. PATIENT CONTINUES ON RESPIRATORY TX. ABD IS SOFT WITH BSX4. PATIENT IS WAS INCONTINENT OF STOOL X1 TODAY WITH P.T. PATIENT IS UP TO THE DINING ROOM WITH ST. PATIENT TOOK MEDS 1 AT A TIME WITH APPLESAUCE AND NECTAR THICK LIQUIDS. PATIENT ALSO HAS RIGHT FACIAL DROOP. FALL AND SAFETY PROTOCOLS IN PLACE. DENIES ANY PAIN AT THIS TIME. CONTINUES TO PROGESS SLOWLY TOWARDS D/C GOALS. WILL CONTINUE TO MONITER.
--- NOTE | 2019-04-04 03:32 | NUR ---
ASSUMED CARE AT APPROX 1900 EVENING 04/03. PT AWAKE, ALERT AND ORIENTED AT CHANGE OF SHIFT. PT APPROPRIATE AND COOPERATIVE. ABDUL TO DD WITH YELLOW URINE TO BAG. PT TOOK HS MEDS WITH APPLESAUCE TOLERATING WELL. PT HAD INCONTINENT BM TONIGHT. ASSISTED WITH CLEANING AND REPOSITIONING,. PT APPEARS TO BE SLEEPING SOUNDLY WITH HOURLY ROUNDING CHECKS. BED ALARM ON AND CALL LIGHT IN REACH. WILL CONTINUE TO MONITOR.
[2019-04-04 05:36] LABS: ALBUMIN 2.4 g/dL (3.4-5.0); CALCIUM 9.1 mg/dL (8.5-10.1); CREATININE 3.2 mg/dL (0.7-1.3); PHOSPHORUS 4.1 mg/dL (2.5-4.9); POTASSIUM 3.7 mmol/L (3.5-5.1)
[2019-04-04 08:02] VITALS: BP 143/59
[2019-04-04 19:45] VITALS: BP 150/64
--- NOTE | 2019-04-04 20:13 | NUR ---
ASSUMED CARE OF PT AT 0705. PT IS A&OX3 AND VITAL SIGNS ARE STABLE. PT DENIES PAIN. ABDUL CATHETER IN PLACE AND DRAINING APPROPRIATELY WTIH ADEQUATE URINE OUTPUT. PT HAS INCREASED THIRST, NECTAR THICK LIQUIDS. PICC LINE TO RIGHT UPPER ARM, NO ORDERS FOR IV MEDICATIONS AT THIS TIME. SIGNIFICANT RIGHT SIDED WEAKNESS. MAX 2 ASSIST TO PIVOT TRANSFER. MEDICATIONS WITH APPLESAUCE TOELRATED WELL. NON-PRODUCTIVE COUGH, LUNG SOUNDS CLEAR BILATERALLY IN ALL LOBES. ACCU CHECK ACHS AND MANAGED WITH INSULIN. FAMILY AT BEDSIDE. FALL PRECAUTIONS IN PLACE AND NURSING WILL CONTINUE TO MONITOR.
--- NOTE | 2019-04-05 01:03 | NUR ---
PT ASSESSMENT COMPLETED AND VSS. MEDS GIVEN ORDERED AND WELL TOLERATED. FALL PRECAUTIONS IN PLACE. ASST WITH REPOSITION. ABDUL DRAINING MODERATE AMOUNT OF YELLOW URINE. ASST WITH REPOSITION FOR COMFORT. SNACK PROVIDED WITH INSULIN. PT STATES THAT HE IS VERY THIRSTY EVEN THOUGH HE HAS BEEN DRINKING A LOT. TOLERATING NECTOR THICK WATER. SLEEPING WELL. DENIES NEEDS. WILL CONTINUE TO MONITOR FREQUENTLY.
--- NOTE | 2019-04-05 07:54 | NUR ---
PT WITH WOUNDS TO THE SCROTUM, R BUTTOCK, SACRUM, AND SOFT HEELS. PICTURES TAKEN. TREATING PLANT SUPERVISOR CONSULTED. PT WITH LOOSE STOOL DURING THE NIGHT. PT MAY HAVE CDIFF. SAMPLE NEEDED. PT STATES THAT HE HAS HAD CDIFF IN THE PAST. HE THINKS IT WAS 2 YEARS AGO. CONTACTED PROOF CARRIER DOC. PER ORDERS WILL HAVE SAMPLE OF NEXT BM SENT TO THE LAB FOR CDIFF TESTING. ISOLATION CART ORDERED UNTIL CDIFF IS RULED OUT. INFORMED DAY RNRIGO, AND DR ELLIOTT.
[2019-04-05 08:52] VITALS: BP 128/44
--- NOTE | 2019-04-05 08:52 | NUR ---
VASCULAR ACCESS ROUNDING- THIS PATIENT IS OFF ALL IV MEDS, RECOMMEND REMOVAL OF TRIPLE LUMEN PICC TO DECREASE RISK OF INFECTION IF LINE IS NO LONGER NECESSARY
--- NOTE | 2019-04-05 09:39 | NUR ---
unable to visit with pt, out of his room.
--- NOTE | 2019-04-05 11:48 | NUR ---
CONFIRMED WITH SLEEVER LINE IS NO LONGER NEEDED AND OK TO D/C. LINE DISCONTINUED PER POLICY
--- NOTE | 2019-04-05 14:15 | NUR ---
Nutrition: Assessed d/t consult for poor intake. Admit: multiple L watershed infarcts. S/p cardiac arrest, extubated 03/29. Having weakness, mention of DOMINIQUE and swallowing deficits. On a pureed, renal, 1800 kcal carb controlled diet w/ nectar thick liquids. Recent BM 04/04. Eating 75-100% of most every meal. 88% meal average per last 14 recorded meals since 03/31. Per latest 04/04 labs: K+ 3.7 (WNL) Phos 4.1 (WNL, down from 6.4) Given extreme dysphagia and other diet/liquid restrictions, strongly recommend removing renal diet restrictions as K+ and Phos both normalized. Tried to obtain food preferences, but pt states "just a variety." Limited in what oral supplements he can consume d/t thickened liquid need. RD suggests regular vanilla pudding w/ Beneprotein modular added in. Pt in agreement. Will send BID at lunch, dinner. If phos trends back up will remove pudding. Low nutrition risk w/ consistently high PO and added protein sources.
--- NOTE | 2019-04-05 14:24 | NUR ---
Recommend removing renal diet restrictions in setting of DOMINQIUE and other extensive diet restrictions w/ pureed diet and requiring nectar thick liquids. Both K+ and Phos have normalized per latest 04/04 labs. K+ 3.7 mEq/L (WNL) Phos 4.1 mg/dL (WNL)
--- NOTE | 2019-04-05 16:02 | NUR ---
WOUND CARE CONSULT; A LIMITED ASSESSMENT WAS COMPLETED. I WAS NOT ABLE TO VISUALIZE THE SCROTUM OTHER THAN PICTURES. I WILL ATTEMPT TO ASSESS TOMORROW IN THE BED. THE RIGHT BUTTOCK HAS A SMALL WOUND 1.0 X 0.4 X 0.1 A FRICTION SEARING AREA IS LIKELY. THE BILATERAL ANTIERIOR ANKLES HAVE AREAS THAT ARE SUSPIOUS OF DTI'S WELL BILATERAL HEELS. UNABLE TO DETERMINE AT THIS POINT, I WILL CONTINUE TO ASSESS DAILY. RECOMMENDATIONS; ZGUARD TO SCROTUM AND RIGHT BUTTOCKS BID/PRN LOW AIR LOSS PUMP WILL BE ADDED. DISCUSED WITH STAFF
--- NOTE | 2019-04-05 16:06 | NUR ---
chart review, pt up in room in recliner chair, friends visiting. ok with pt is start visit. " these protestant bother and sister"/colby. intro to dcp, team meeting and transition of care. pt friends left, cont to visit with colby, he reported " live in apartment with my mark and my son comes in and out. few sides to get to building d- [address] 4 steps and then long hallway, then other side 12 steps and hallway. independent, no dme. manage own medication. was driving before came in, well wont be now. no nelson cath prior to hospital."/colby. will cont following as needed for dc needs.
[2019-04-05 18:26] LABS: ALBUMIN 2.7 g/dL (3.4-5.0); CALCIUM 8.8 mg/dL (8.5-10.1); CREATININE 2.9 mg/dL (0.7-1.3); PHOSPHORUS 4.3 mg/dL (2.5-4.9); POTASSIUM 3.8 mmol/L (3.5-5.1)
[2019-04-05 19:45] VITALS: BP 127/56
--- NOTE | 2019-04-05 20:07 | NUR ---
ASSUMED CARE AT 0700, PT A&O X 4 BUT CAN BE FORGETFUL, FAMILY AT BEDSIDE. CONDITION STABLE VS STABLE, 02 ON RA. SPECIAL CONTACT ISO CONTINUED FOR POSS C.DIFF. PICC REMOVED TODAY. BG AC AND HS,SLIDING SCALE NEEDED. STRICT I&O MAINTAINED. TOLERATED THERAPY, MAX ASSIST X 2 FOR TRANSFERS. PT DENIES ANY PAIN OR DISCOMFORT. TOLERATED MEDS WITH APPLESAUCE WITH NO DIFFICULTY. NO BM NOTED DURING SHIFT, VOIDS VIA ABDUL, 700 OUTPUT. BED IN LOWEST POSITION, CALL LIGHT WITHIN REACH, WILL CONTINUE TO MONITOR PER POC.
[2019-04-05 21:16] LABS: % SATURATION 13 % (20-39); IRON 32 ug/dL (65-175); TIBC 247 ug/dL (250-450)
[2019-04-05 21:48] LABS: FOLIC ACID 5.8 ng/mL (8.6-58.9)
--- NOTE | 2019-04-06 02:56 | NUR ---
PT ASSESSMENT COMPLETED AND VSS. MEDS GIVEN ORDERED AND WELL TOLERATED. FALL PRECAUTIONS IN PLACE. SPECIAL CONTACT ISOLATION FOLLOWED. 0 BM SO FAR DURING SHIFT. WAITING TO GET A STOOL SAMPLE FOR TESTING. ASST WITH REPOSITION FOR COMFORT USING PILLOWS. FOLLOWED WOUND CARE ORDERS. ABDUL DRAINING YELLOW URINE WITH SEDIMENT. SLEEPING ON AND OFF. TOLERATING NECTOR THICK WATER. ELEVATED BG/INSULIN GIVEN. WILL CONTINUE TO MONITOR FREQUENTLY.
[2019-04-06 06:12] LABS: ALBUMIN 2.3 g/dL (3.4-5.0); CALCIUM 8.4 mg/dL (8.5-10.1); CREATININE 2.7 mg/dL (0.7-1.3); PHOSPHORUS 4.7 mg/dL (2.5-4.9); POTASSIUM 3.3 mmol/L (3.5-5.1)
[2019-04-06 08:27] LABS: HEMOGLOBIN 8.8 gm/dL (14.0-18.0)
[2019-04-06 10:00] VITALS: BP 133/53
--- NOTE | 2019-04-06 18:56 | NUR ---
ASSUMED CARE AT 0700, PT A&0 X 4 BUT FORGETFUL AT TIMES. CONDITION STABLE VS STABLE, DENIES PAIN OR DISCOMFORT. CONTACT ISO D/C'D TODAY. NECTAR THICKENED LIQUIDS CONTINUED, STRICT I&O. NO IV ACCESS. WOUND CARE DONE AND NEEDED. NO BM DURING SHIFT. ABDUL IN PLACE, CLEAR YELLOW URINE WOTH 450 OUTPUT FOR SHIFT. MAX ASSIST X 2, TOLERATED THERAPY, BG ACHS, SLIDING SCALE NEEDED. BED IN LOWEST POSITION, CALL LIGHT WITHIN REACH, WILL CONTINUE TO MONITOR PER POC.
[2019-04-06 19:30] VITALS: BP 120/52
--- NOTE | 2019-04-07 03:37 | NUR ---
2 PERSON ASSIST TO GET FROM CHAIR TO BED FOR THE NIGHT LAST EVENING. TURNED TO SIDE, AIR PUMP THERAPY, AND Z-GUARD TO OPEN AREAS RIGHT BUTTOCK AND SCROTUM. SCDS ON FOR 3 HOURS, OFF NOW BECAUSE THEY ARE BOTHERING HIM. TYLENOL FOR RIGHT LEG PAIN.
[2019-04-07 09:00] VITALS: BP 133/49
--- NOTE | 2019-04-07 09:13 | NUR ---
ASSUMED CARE AT 0700. PATIENT IS ALERT AND ORIENTED X4. PATIENT HAS RIGHT SIDED WEAKNESS. LUNGS ARE CLEAR. ABD IS SOFT WITH BSX4. PATIENT HAS ABDUL TO DD, DRAINING ERIKA COLORED URINE. FALL AND SAFETY PROTOCOLS IN PLACE. OUT TO DINING ROOM FOR MEALS. ST HERE TO EVAL PATIENT. DENIES ANY PAIN. CONTINUES TO PROGESS SLOWLY TOWARDS D/C GOALS. WILL CONTINUE TO MONITER.
--- NOTE | 2019-04-07 12:18 | HC ---
[facility] [place] [address] CONSULTATION Name: KASI EVERETT Room #: 514-P [facility] IN M.R.#: [id number] Admission: 04/02/19 Attend Phys: Aravind Mccrary MD Discharge: Date of : 45 Report #: [id number] THIS REPORT FOR: //name// CC: Aravind Hinkle DATE OF SERVICE: 04/06/2019 ENDOCRINE CONSULTATION NOTE CONSULTING PHYSICIAN: Dr. Campuzano. REASON FOR CONSULTATION: Uncontrolled type 2 diabetes mellitus. HISTORY OF PRESENT ILLNESS: This is a 73-year-old male patient whose medical background is significant for multiple medical issues including type 2 diabetes mellitus, hypertension and hyperlipidemia. The patient was admitted earlier to [facility] and had at that time experienced series of significant medical events including cardiac arrest with PEA, followed by a successful CPR as well as ongoing cardiac issues with congestive heart failure and pulmonary edema. Also, during these events, the patient experienced hypoperfusion to the brain, which resulted in a watershed CVA with an ensuing right hemiparesis. The patient has since recovered remarkably and been admitted to the rehabilitation unit for further rehabilitation efforts. Again, the patient is known to have had type 2 diabetes mellitus for several years and was most recently maintained on a combination of metformin and glimepiride. However, in view of his progressive issues with renal insufficiency, metformin was held off. The patient is not aware of issues pertaining to diabetic neuropathy or retinopathy. Also, the patient has hyperlipidemia and is on therapy with rosuvastatin, he is known to have hypertension and is on treatment with amlodipine and metoprolol. REVIEW OF SYSTEMS: CONSTITUTIONAL: Fatigue, tiredness, but not fever or chills or significant body weight changes. HEENT: Negative for sinus pain or ear drainage. PULMONARY: Occasional shortness of breath, dyspnea on exertion, occasional orthopnea, intermittent cough, no hemoptysis. CARDIAC: Lower extremity edema, dyspnea on exertion and orthopnea. No chest pain or palpitations. NEUROLOGY: Occasional lightheadedness. NEUROLOGY: Right-sided weakness, numbness, tingling, unsteady gait, [facility] [address] [place] [address] CONSULTATION Name: KASI EVERETT Room #: 514-P [facility] IN M.R.#: [id number] Admission: 04/02/19 Attend Phys: Aravind Mccrary MD Discharge: Date of : 45 Report #: [id number] lightheadedness, dizziness, but negative for seizure activity or loss of consciousness. GASTROINTESTINAL: Noted for intermittent issues with abdominal distention, abdominal discomfort, occasional nausea, but no vomiting. SKIN: Negative for rash, ulceration or other significant dermatologic issues. PSYCHIATRIC: Negative for delusions, hallucinations. Otherwise, review of systems noncontributory other than those mentioned in HPI. PAST MEDICAL HISTORY: 1. Type 2 diabetes mellitus. 2. Hypertension. 3. Hyperlipidemia. 4. Renal insufficiency. 5. Recent cardiac arrest with PEA, status post CPR. 6. CAD. 7. Cardiomyopathy, ejection fraction of 30-35%. 8. Mild AI. 9. Mild . 10. Carotid arterial disease. 11. Peripheral arterial disease. 12. Acute kidney injury and chronic kidney disease. 13. Atrial fibrillation. 14. Watershed CVA with right hemiparesis. ACTIVE MEDICATIONS: Include albuterol, amiodarone, amlodipine, metformin, metoprolol, atorvastatin, glimepiride, pantoprazole, Colace. ALLERGIES: No known drug allergies. FAMILY HISTORY: Noncontributory. SOCIAL HISTORY: The patient denies active use of tobacco, alcohol or illicit drugs. PHYSICAL EXAMINATION: GENERAL: A pleasant -British male patient sitting in his chair, working with physical therapy. VITAL SIGNS: Blood pressure is 133/53 mmHg, heart rate is 79 beats per minute, respirations 20 per minute, temperature 36.8 degrees. CONSTITUTIONAL: The patient is sitting upright, appears comfortable, not in apparent pain or distress. HEENT: Anicteric sclerae. Intact extraocular motions. NECK: Supple, without JVD. No thyromegaly. CHEST: Noted for moderate entry bilaterally with scattered rales, rhonchi. Bibasilar crackles. HEART: Regular rate and rhythm with a systolic ejection murmur over the base of [facility] [address] [place] [address] CONSULTATION Name: KASI EVERETT Room #: 514-P [facility] IN M.R.#: [id number] Admission: 04/02/19 Attend Phys: Aravind Mccrary MD Discharge: Date of : 45 Report #: [id number] the heart. ABDOMEN: Soft, lax. No guarding, no tenderness. Active bowel sounds. EXTREMITIES: Lower extremity exam, trace ankle edema bilaterally. Faint pedal pulses. NEUROLOGIC: Awake, alert and oriented to time, place and person. The remainder of his examination is noted for right upper extremity and right lower extremity weakness. PSYCHIATRIC: Pleasant, interactive, appropriate and answers my questions appropriately. Normal mood and affect. LABORATORY RESULTS: Blood glucose values were reviewed at length and these have fluctuated widely from a low of 85 to a high of 333 mg/dL. Otherwise, sodium 143, potassium 3.3, chloride 108, CO2 25, anion gap 10, BUN 45, creatinine 2.7 and over the past several days, his creatinine got as high as 6.0, AST 65, amylase 83, lipase 418, total bilirubin 1.1, calcium 8.4, phosphorus 4.7, magnesium 1.9, alkaline phosphatase 68, ALT 69, total protein 6.4, albumin 2.3, EGFR 28, lactic acid 5.4. Troponin 9.57, total cholesterol 134, triglycerides 117, HDL 29, LDL 87. BNP 7256. White blood count 10.6, hemoglobin 8.8, hematocrit 27, platelets 238. Hemoglobin A1c is 8.5%. ASSESSMENT AND PLAN: 1. Type 2 diabetes mellitus. As noted above, the patient has been under adequate control as per his recorded blood glucose values and as per his hemoglobin A1c. Moreover, with a recent significant medical events, culminating in progressive cardiac issues, cardiac arrest as well as advancing kidney disease, I do not believe that the patient is a good candidate for metformin therapy for the foreseeable future. That said, the patient is still on ongoing glimepiride therapy at 40 mg b.i.d. This does concern me regarding the possibility of hypoglycemia, especially in the setting of advanced kidney disease. That said, I would very much rather see the patient transitioned to insulin therapy and I will do so in the form of administrating Lantus insulin 18 units q.p.m. supported by Tradjenta 5 mg daily as well as support with Humalog supplemental scale, low intensity. Blood glucose monitoring will commence before meals and at bedtime to assist with further therapeutic changes as would be necessary. 2. Hyperlipidemia. The patient is currently on atorvastatin therapy and tolerates it well, is to continue with the same. 3. Hypertension. The patient is currently on treatment with metoprolol and amlodipine and has been under adequate control with these, he is to continue with the same. 4. Thyroid dysfunction. The patient's ongoing amiodarone therapy certainly represent a risk factor for thyroid dysfunction. I will screen for this possibility with a TSH and free T4 levels. Further therapeutic intervention will be based on these results. I have reviewed the patient's clinical care notes, laboratory results, past and [address] [address] CONSULTATION Name: KASI EVERETT Room #: 514-P [facility] IN ..#: [id number] Admission: 04/02/19 Attend Phys: Aravind Mccrary MD Discharge: Date of : 45 Report #: [id number] present for over 35 minutes. I appreciate this consultation by Dr. Campuzano. <ELECTRONICALLY SIGNED> By: Анна Parker MD 04/07/19 1218 1153 [id number] Анна Parker MD /nt
[2019-04-07 19:33] VITALS: BP 132/55
--- NOTE | 2019-04-08 01:26 | NUR ---
PT ALERT AND ORIENTED X 4. ABDUL PATENT DRAINING ADEQUATE AMTS CLEAR YELLOW URINE. BLOOD SUGAR 192 AT HS. INSULIN GIVEN ORDERED. PT TAKES MEDS IN APPLESAUCE WITHOUT DIFFICULTY. PT C/O PAIN IN BUTTOCKS. TYLENOL GIVEN ORDERED AND PT SLEEPING UPON REASSESSMENT. PT TURNED Q2H DURING THE NIGHT. BED ALARM ON FOR SAFETY. PT APPEARS TO BE SLEEPING ON HOURLY ROUNDS.
[2019-04-08 06:29] LABS: ALBUMIN 2.3 g/dL (3.4-5.0); CALCIUM 8.5 mg/dL (8.5-10.1); CREATININE 2.7 mg/dL (0.7-1.3); PHOSPHORUS 4.1 mg/dL (2.5-4.9); POTASSIUM 3.8 mmol/L (3.5-5.1)
--- NOTE | 2019-04-08 06:44 | NUR ---
BLOOD SUGAR 65 PER LAB THIS MORNING. NECTAR THICK APPLE JUICE GIVEN TO PT.
[2019-04-08 08:21] VITALS: BP 137/52
--- NOTE | 2019-04-08 13:08 | NUR ---
WOUND CARE F/U; THE SCOTUM AND BUTTOCKS WERE ASSESSED TODAY. BOTH AREAS ARE CLINICALLY BETTER TODAY. NO S/S OF INFECTION. CONTINUE CURRENT POC STAFF PRESENT
--- NOTE | 2019-04-08 14:11 | NUR ---
ASSUMED CARES AT 0700. PT AWAKE, ALERT AND ORIENTED 84. DENIES PAIN. VITALS REMAIN STABLE. PT CONTINUES TO HAVE RIGHT SIDED WEAKNESS, R ARM REMAINS FLACCID. WOUNDS ON SACRUM, COCCYX AND SCROTUM CLEANED AND BARRIER CREAM APPLIED. PT UP WITH 1-2 PIVOT TRANSFERS, GB AND WALKER AND W/C. Q1H VISUAL CHECKS. CALL LIGHT WITHIN REACH. FALL PRECAUTIONS IN PLACEEE
[2019-04-08 15:45] VITALS: BP 117/53
--- NOTE | 2019-04-08 23:50 | NUR ---
PT ASSESSMENT DONE AND VSS. MEDS GIVEN AND WELL TOLERATED. FALL PRECAUTIONS IN PLACE. SLEEPING WELL. HOURLY ROUNDING. CALL LIGHT IN REACH. WILL CONTINUE TO MONITOR.
[2019-04-09 08:00] VITALS: BP 135/49
--- NOTE | 2019-04-09 11:11 | H ---
[facility] [place] [place] [address] HISTORY AND PHYSICAL Name: KASI EVERETT Room #: 506-1 ADM IN M.R.#: [id number] Admission: 04/02/19 Attend Phys: Aravind Mccrary MD Discharge: Date of : 45 Report #: [id number] THIS REPORT FOR: //name// CC: Aravind Hinkle DATE OF SERVICE: 04/02/2019 HISTORY AND PHYSICAL AND POST-ADMISSION PHYSICIAN EVALUATION HISTORY OF PRESENT ILLNESS: The patient is a 73-year-old -Citizen Of [place] male who was originally admitted to [facility] on 03/23/2019. He has chest pain at home, became unresponsive, coded en route. He was intubated and admitted to the ICU status post cardiac arrest. He was able to be extubated on 03/29/2019. He had significant acute on chronic respiratory insufficiency, thought to be likely nonoliguric acute tubular necrosis. He was noted to have weakness on the right side and Neuro consult was obtained an MRI revealed multiple infarcts, left watershed distribution. He also has swallowing deficits, was placed on nectar thickened liquids. He was noted to have significant functional deficits from his premorbid status and has been admitted for acute in-hospital inpatient rehabilitation. ALLERGIES: No known drug allergies. Prior medical history mild coronary artery disease with catheterization in 2017, history of cardiomyopathy, diabetes mellitus, hypertension, hyperlipidemia, carotid artery stenosis, peripheral arterial disease. PAST SURGICAL HISTORY: Hernia repair. FAMILY HISTORY: Diabetes, hypertension. HABITS: Smoking, quit greater than a year ago. No history of alcohol abuse. MEDICATIONS: Please see the full medication listing. SOCIAL HISTORY: Lives in an apartment with his , 12 steps using no adaptive device, premorbidly was having an active lifestyle independent with ADLs and sharing IADLs. REVIEW OF SYSTEMS: No current complaints of chest pain, shortness of breath or abdominal discomfort. PHYSICAL EXAMINATION: GENERAL: A 73-year-old -Citizen Of [place] male in no obvious distress. VITAL SIGNS: Temperature 36.5, pulse 72, respirations 14, blood pressure [facility] [address] [place] [address] HISTORY AND PHYSICAL Name: KASI EVERETT [place] Room #: 506-1 [facility] IN M.R.#: [id number] Admission: 04/02/19 Attend Phys: Aravind Mccrary MD Discharge: Date of : 45 Report #: [id number]/. NEUROLOGIC: The patient is alert, some slurring of speech. Some slight dysarthria depressed right nasolabial fold. HEAD, EYES, EARS, NOSE, AND THROAT: Facies otherwise appeared symmetric. CHEST: Sounded clear to auscultation. CARDIOVASCULAR: Regular rate and rhythm. ABDOMEN: Bowel sounds positive, nontender. GENITOURINARY AND RECTAL: Deferred. EXTREMITIES: He has definite right-sided weakness. Right upper extremity is a grade 2+ to right lower extremity is a grade 2+. Left upper extremity is more of a grade 4-, left lower extremity is 4-. Tone appeared somewhat decreased right upper and right lower extremity, mild decreased sensation right upper and right lower extremity to simultaneous stimulation. Negative Homans. Functionally, he is max assist with basic transfers. ASSESSMENT: A 73-year-old -Citizen Of [place] male following problems: 1. Cerebrovascular accident with multiple left watershed infarctions. 2. Right-sided hemiparesis, upper and lower extremity. 3. Dysphagia, on modified diet. 4. Dysarthria. 5. Status post cardiac arrest. 6. Acute respiratory failure, status post extubation. 7. Acute renal insufficiency with acute tubular necrosis. 8. Cardiomyopathy. 9. Peripheral arterial disease. 10. Diabetes mellitus type 2. 11. Hypertension. PLAN: The patient has been admitted for acute in-hospital inpatient rehabilitation. From a postadmission physician evaluation perspective, there are no relevant changes since the preadmission screening. Please see the above review of prior and current medical and functional conditions and comorbidities. Please see the patient's previous and current functional status. As far as risk of complications, the patient has multiple medical comorbidities as noted above. Initial plan of care involves the interdisciplinary acute inpatient rehabilitation program. Measurable functional goals would be for the patient to become modified independent with transfers, mobility and ADLs and improved cognition and swallowing. Goal is at least to achieve a functional level where he can return back to the home setting. We will need to see how he progresses. Prognosis is reasonably good with estimated length of stay probably at least 2-[address] [address] HISTORY AND PHYSICAL Name: KASI EVERETT Room #: 506-1 ADM IN M.R.#: [id number] Admission: 04/02/19 Attend Phys: Aravind Mccrary MD Discharge: Date of : 45 Report #: [id number] weeks pending progress. Potential barriers would include his multiple medical comorbidities and decreased functional status. <ELECTRONICALLY SIGNED> By: Aravind Mccrary MD 04/09/19 1111 1351 1402 Aravind Mccrary MD /[facility]
--- NOTE | 2019-04-09 13:32 | NUR ---
team meeting, recommendation: re team with anticipated dc of 04/26/2019.
--- NOTE | 2019-04-09 15:29 | NUR ---
ASSUMED CARES AT 0700. PT AWAKE, ALERT AND ORIENTED*4. DENIES PAIN. VITALS REMAIN STABLE. PT CONTINUES TO HAVE RIGHT SIDED WEAKNESS. ABDUL REMAIN INTACT AND PATENT, SMALL AMOUNT OF BLOOD NOTED AROUND THE PENIS AND OPEN SKIN NOTED AT THE TIP. SITE CLEANED, ABDUL ADJUSTED. WOUNDS IN SACRUM CLEANED, ZGUARD APPLIED. PT UP WITH 1-2 MOD ASSIST, GB AND WALKER AND TOLERATED WELL. Q1H VISUAL CHECKS. CALL LIGHT WITHIN REACH. FALL PRECAUTIONS IN PLACE
[2019-04-09 19:25] VITALS: BP 128/65
--- NOTE | 2019-04-09 23:39 | NUR ---
PT ASSESSMENT DONE AND VSS. MEDS GIVEN AND WELL TOLERATED. FALL PRECAUTIONS IN PLACE. SLEEPING WELL. HOURLY ROUNDING. CALL LIGHT IN REACH. WILL CONTINUE TO MONITOR.
[2019-04-10 08:00] VITALS: BP 132/52
--- NOTE | 2019-04-10 15:45 | NUR ---
ASSUMED CARES AT 0700. PT AWAKE, ALERT AND ORIENTED*4. DENIES PAIN. VITALS REMAIN STABLE. ABDUL REMAINS INTACT AND PATENT, LIGHT YELLOW URINE. SACRAL AND PENIS WOUNDS CLEANED AND ZGUARD APPLIED. PT CONTINUES TO HAVE 2+ EDEMA ON BLE, EXTREMITIES ELEVATED. Q1H VISUAL CHECKS. CALL LIGHT WITHIN REACH. FALL PRECAUTIONS IN PLACE
[2019-04-10 20:00] VITALS: BP 115/54
--- NOTE | 2019-04-11 00:45 | NUR ---
ALERT AND ORIENTED X 4. ABDUL PATENT DRAINING YELLOW URINE WITH SEDIMENT IN TUBING. BLOOD SUGAR 155 AT HS. INSULIN GIVEN ORDERED. SNACK GIVEN. PT DENIES PAIN OR DISCOMFORT. BED ALARM ON FOR SAFETY. PT APPEARS TO BE SLEEPING ON HOURLY ROUNDS.
[2019-04-11 07:45] VITALS: BP 125/62
--- NOTE | 2019-04-11 10:34 | NUR ---
ASSUMED CARE AT 0700. PATIENT IS ALERT AND ORIENTED X4. PATIENT HAS RIGHT SIDED WEAKNESS. LUNGS ARE CLEAR. ABD IS SOFT WITH BSX4. PATIENT HAS ABDUL TO DD. AT BEDSIDE. PATIENT HAD BREAKFAST IN BED. PATIENT IS UP WITH ASSIST OF 1 STAFF, STAND PIVOT TRANSFER. PATIENT AMBULATED WITH P.T. WITH WALKER IN HALLWAY. FALL AND SAFETY PROTOCOLS IN PLACE. C/O PAIN IN HIS RIGHT FOOT. MEDICATED WITH PRN PAIN MED. CONTINUES TO PROGESS TOWARDS D/C GOALS. WILL CONTINUE TO MONITER.
[2019-04-11 20:51] VITALS: BP 121/55
--- NOTE | 2019-04-11 23:31 | NUR ---
PT ALERT AND ORIENTED X 4. ABDUL PATENT DRAINING ADEQUATE AMTS ERIKA URINE. PT C/O PAIN IN RIGHT FOOT. RIGHT HEEL RED. HEELS ELEVATED OFF BED WITH PILLOWS. TYLENOL GIVEN FOR PAIN AT HS. PT SLEEPING UPON REASSESSMENT. BED ALARM ON FOR SAFETY. PT APPEARS TO BE SLEEPING ON HOURLY ROUNDS.
[2019-04-12 06:38] LABS: ALBUMIN 2.4 g/dL (3.4-5.0); CALCIUM 8.8 mg/dL (8.5-10.1); PHOSPHORUS 4.4 mg/dL (2.5-4.9); POTASSIUM 4.3 mmol/L (3.5-5.1)
[2019-04-12 10:17] VITALS: BP 128/52
--- NOTE | 2019-04-12 11:02 | NUR ---
WOUND CARE F/U ASSESSED WOUNDS W/ MECHANIC CHIEF DANIELE. BUTTOCKS WOUNDS AND SCROTAL WOUNDS HEALING, SCANT DRAINAGE, NO S/S INFECTION, SKIN TEARS BILAT LOWER LEGS DIRECTLY ABOVE ANKLE, CAUSE? TONGUE OF SHOES? EDEMA +2 PRESENT LEFT FOOT, CLOSED BLISTER LEFT HEEL. PT ALERT AND COOPERATIVE RECOMMENDATIONS; CONT W/ ZGUARD TO BUTTOCKS WOUND AND SCROTAL WOUND DAILY AND PRN, PAINT LEFT HEEL W/ SKIN PREP DAILY, PRAFO BOOTS WHEN IN BED, CONT W/ OFF LOADING AND PRESSURE RELIEF, FOAM DRSG PRN WHEN WEARING SHOES, ASSESS TONGUE OF SHOES SO NOT TOO TIGHT IN AREA, CONT LOW AIR LOSS PUMP TO BED MECHANIC CHIEF INFORMED
--- NOTE | 2019-04-12 12:58 | NUR ---
Nutrition followup: Diet has been upgraded from pureed, nectar thick consistency to mechanically altered ground. Continues on 1800 ailin ADA, renal restrictions. PO intake is overall good, 50-100% of meals. States he uses the beneprotein powder in pudding BID although noticed no pudding on lunch tray today-ordered. BG controlled and Phos/K+ WNL. Wound care indicating healing wounds. On both Fe+ and folate supplementation for deficiency. Endocrinology managing BG. A1C 8.5. No new weight. Due to K+/phos WNL, continue D/C of renal diet restrictions. Low nutrition risk.
[2019-04-12 20:05] VITALS: BP 140/48
--- NOTE | 2019-04-12 20:28 | NUR ---
assumed care of pt at 0715. pt is a&ox4 and vital signs are stable. pt denies pain and participated in scheduled therapies. per poultry dresser pt will be discharged with insulin. nursing to initiate insulin administration education with and patient. pt and receptive to education. nursing discussed insulin vials and pens, sliding scales, and proper administration sites and techniques. instructed to bring blood glucose monitoring supplies prior to discharge for practice and review as she states that she will be changing monitors. nursing will continue to reinforce education and continue to provide further education prior to discharge. nelson catheter in place and draining appropriately with adequate hourly output. on assessment blister found on left heel, wound care consulted and orders for skin prep to area and pressure relief with prafo boots and low airloss mattress. ulcers noted to bilateral ankles, orders to apply silicone boarder dressing and ensure footwear does not apply pressure to the area. wounds to sacrum and scrotum cleaned and z-guard applied per orders. accu checks achs and managed with insulin and po medications. pt calls appropriately, fall precautions in place and nursing will continue to monitor.
--- NOTE | 2019-04-13 00:34 | NUR ---
PT ASSESSMENT DONE AND VSS. MEDS GIVEN AND WELL TOLERATED. FALL PRECAUTIONS IN PLACE. SLEEPING WELL. HOURLY ROUNDING. CALL LIGHT IN REACH. WILL CONTINUE TO MONITOR.
[2019-04-13 07:15] VITALS: BP 136/66
--- NOTE | 2019-04-13 12:48 | NUR ---
team meeting, recommendation: bedside nurse teaching on dm and insulin, in case he is dc on insulin. trial to dc nelson cath. [facility]. dc 04/26/2019 (pt, ot, st, nursing). outpt follow up neuropysch.
[2019-04-13 18:55] LABS: URINE BILIRUBIN NEGATIVE (Negative); URINE BLOOD 2+ (Negative); URINE CLARITY CLEAR; URINE COLOR YELLOW; URINE GLUCOSE-RANDOM* NEGATIVE (Negative); URINE KETONES NEGATIVE (Negative); URINE LEUKOCYTES-REFLEX 3+ (Negative); URINE NITRITE-REFLEX NEGATIVE (Negative); URINE PROTEIN (DIPSTICK) NEGATIVE (Negative); URINE UROBILINOGEN 0.2 E.U./dl (0.2-1.0)
[2019-04-13 19:35] VITALS: BP 127/63
--- NOTE | 2019-04-13 20:01 | NUR ---
ASSUMED CARE OF PT AT 0715. PT IS A&OX4 AND VITAL SIGNS ARE STABLE. ACCU CHECKS ACHS AND MANAGED WITH PO MEDICATIONS AND INSULIN. PT REPORTS BURNING AND DISCOMFORT AT CATHETER INSERTION SITE AND IN AREA OF BLADDER. ORDERS TO REMOVE ABDUL CATHETER THIS SHIFT AND OBTAIN A UA. PROVIDER NOTIFIED ABOUT RESULTS OF UA. WOUND DRESSINGS CHANGED THIS SHIFT PER ORDERS. DENIES PAIN AND PARTICIPATED IN SCHEDULED THERAPIES. FALL PRECAUTIONS IN PLACE AND NURSING WILL CONTINUE TO MONITOR.
[2019-04-13 20:07] LABS: CASTS None Seen /LPF (None Seen); CRYSTALS None Seen /LPF (None Seen); SQUAMOUS 0-3 Few /LPF (0-3); URINE RBC 3-10 Few /HPF (0-2); WBC CLUMPS Few (None Seen); YEAST-REFLEX Present (None Seen)
--- NOTE | 2019-04-13 22:55 | NUR ---
PT ASSESSMENT DONE AND VSS. MEDS GIVEN AND WELL TOLERATED. FALL PRECAUTIONS IN PLACE. SLEEPING WELL. HOURLY ROUNDING. CALL LIGHT IN REACH. WILL CONTINUE TO MONITOR.
[2019-04-14 06:35] LABS: ALBUMIN 2.3 g/dL (3.4-5.0); CALCIUM 8.3 mg/dL (8.5-10.1); PHOSPHORUS 3.9 mg/dL (2.5-4.9); POTASSIUM 4.1 mmol/L (3.5-5.1)
[2019-04-14 07:30] VITALS: BP 119/68
--- NOTE | 2019-04-14 10:29 | NUR ---
WOUND CARE F/U ASSESSED WOUNDS W/ BICYCLE DESIGNER DANIELE, BUTTOCK/SACRAL AND SCROTAL WOUND HEALING, PINK GRANULATING TISSUE PRESENT, BLISTER L HEEL SAME, NOT OPEN NOR DRAINING, BILAT LOWER LEG/ANKLE WOUNDS HEALING, VIABLE PINKISH/RED TISSUE, NO S/S INFECTION, WEARING PRAFO BOOTS WHEN IN BED, ON LOW AIR LOSS MATTRESS RECOMMENDATIONS CONT W/ DAILY/AND PRN WOUND CARE TO SACRAL/SCROTAL WOUNDS, BORDER FOAM TO BILAT LOWER LEG/ANKLE WOUNDS M/W/F, APPLY SKIN PREP TO L HEEL ULCER, FOAM PADDING PRN WHEN WEARING SHOES, CONT PRAFO BOOTS WHEN IN BED, TURN Q2 HOURS IN BED, OFF LOADING, CONT LOW AIR LOSS PUMP TO BED BICYCLE DESIGNER AWARE
--- NOTE | 2019-04-14 13:46 | NUR ---
DISCHARGE PLANNING. ANTICIPATED DISCHARGE TO HOME WITH HOME HEALTH PLANNED FOR 04/26 PER UNIT CM. [facility] CALL PLACED TO [facility], SPOKE WITH ALEX. ALEX TO FACILITATE. FOLLOWING.
--- NOTE | 2019-04-14 16:17 | PLAN ---
[facility] [place] [address] [place] [address] REHAB UNIT PLAN OF CARE Name: KASI EVERETT Room #: 506-1 ADM IN M.R.#: [id number] Admission: 04/02/19 Attend Phys: Aravind Mccrary MD Discharge: Date of : 45 Report #: [id number] THIS REPORT FOR: //name// CC: rAavind Hinkle DATE OF SERVICE: 04/05/2019 PROGRESS NOTE AND OVERALL PLAN OF CARE SUBJECTIVE: The patient was seen back today in followup. He is in no distress. Temperature 98.1, pulse 70, respirations 20, blood pressure 150/64. He does have the right-sided hemiparesis. He is working in therapies with sit to stand transfers, max assist. Gait, HE is unable to ambulate. In occupational therapy, lower body dressing is max assist, upper body is max assist. In speech therapy, he does have severe cognitive deficits with movuhdvp-ui-lywgot memory deficits. Nursing is involved regarding skin issues and took pictures of his skin. Scrotum, right buttock, sacrum and pharmacy care coordinator consulted. Currently, testing for C. diff as well. ASSESSMENT: 1. Cerebrovascular accident with multiple left watershed infarctions. 2. Right-sided hemiparesis, upper and lower extremity. 3. Dysphagia, on modified diet. 4. Dysarthria. 5. Status post cardiac arrest. 6. Acute respiratory failure, status post extubation. 7. Acute renal insufficiency with acute tubular necrosis. 8. Cardiomyopathy. 9. Peripheral arterial disease. 10. Diabetes mellitus type 2. 11. Hypertension. PLAN: The overall plan of care is based on the preadmission screen, post-admission physician evaluation and information garnered from therapy assessments. 1. Estimated length of stay is probably at least 2-3 weeks and potentially longer if warranted. 2. Medical prognosis is reasonably good. 3. Anticipated interventions includes the interdisciplinary acute inpatient rehabilitation program. 4. Anticipated functional outcomes is for the patient to improve as far as functional mobility and ADLs and swallowing and cognition. He is currently on a pureed diet with nectar thickened liquids. 5. Discharge destination would be back to the home setting. He does live in an apartment with his . [facility] [address] [place] [address] REHAB UNIT PLAN OF CARE Name: KASI EVERETT Room #: 506-1 [facility] IN [facility].#: [id number] Admission: 04/02/19 Attend Phys: Aravind Mccrary MD Discharge: Date of : 45 Report #: [id number] 6. Expected therapy by discipline includes PT, OT and speech 1 hour per day each five days a week throughout the duration of the acute inpatient rehabilitation stay. <ELECTRONICALLY SIGNED> By: Aravind Mccrary MD 04/14/19 1617 0926 [id number] Aravind Mccrary MD /PMT
[2019-04-14 19:55] VITALS: BP 142/61
--- NOTE | 2019-04-14 20:21 | NUR ---
ASSUMED CARE OF PT AT 0715. PT IS A&OX4 AND VITAL SIGNS CALLIE STABLE. ORDERS PER NEPHROLOGY FOR QS BLADDER SCAN WITH STRICT I&O'S, NURSING TO CALL NEPHROLOGY FOR RESIDUAL >500 FOR FURTHER INSTRUCTIONS. WOUNDS TO BUTTOCKS, SCROTUM, BLE, AND LEFT HEEL PHOTOGRAPHED AND CHANGED PER ORDERS, WOUNDS HEALING. ACCU CHECKS ACHS AND MANAGED WITH PO MEDICATIONS AND INSULIN. PT AND WOULD LIKE TO CONSIDER HAVING INSULIN D/C'D IF POSSIBLE. INSULIN ADMINISTRATION EDUCATION CONTINUED WITH AND PATIENT, NURSING WILL CONTINUE TO REINFORCE EDUCATION AND ENCOURAGE PARTICIPATION WITH EDCUATION AND ADMINISTRATION. CALLS APPROPRIATELY FOR ASSISTANCE. FALL PRECAUTIONS IN PLACE AND NURSING WILL CONTINUE TO MONITOR.
--- NOTE | 2019-04-15 00:38 | NUR ---
PT ALERT AND ORIENTED X 4. VOIDING ADEQUATE AMTS YELLOW URINE PER URINAL. VOIDED 200 ML AT 2100. BLADDER SCAN 118 AT THAT TIME. PT TAKES MEDS IN APPLESAUCE WITHOUT DIFFICULTY. ZGUARD TO BUTTOCKS AND SCROTUM. PRAFO BOOTS ON. TURNED Q2H. PT DENIES PAIN OR DISCOMFORT. BED ALARM ON FOR SAFETY. PT APPEARS TO BE SLEEPING ON HOURLY ROUNDS.
[2019-04-15 09:06] VITALS: BP 129/56
--- NOTE | 2019-04-15 09:56 | NUR ---
ASSUMED CARE AT 0700. PATIENT IS ALERT AND ORIENTED X4. PATIENT HAS RIGHT SIDED WEAKNESS. LUNGS ARE CLEAR. ABD IS SOFT WITH BSX4. PATIENT STATED "HAD BM DURING 0.T. UP WITH ASSIST OF 1, GAIT BELT AND WALKER. MIRALAX REFUSED D/T HAVING BM THIS A.M. BLISTER TO ANKLE COVERED WITH OPTIFOAM. O.T. PUT Z-GUARD ON ABRASION TO HIS BOTTOM. UP TO THE DINING ROOM FOR MEALS. HERE TO VISIT. FALL AND SAFETY PROTOCOLS IN PLACE. DENIES ANY PAIN AT THIS TIME. CONTINUE TO PROGRESS SLOWLY TOWARDS D/C GOALS.
--- NOTE | 2019-04-15 12:16 | HC ---
[facility] [place] [address] [place] [address] CONSULTATION Name: KASI EVERETT Room #: 506-1 ADM IN M.R.#: [id number] Admission: 04/02/19 Attend Phys: Aravind Mccrary MD Discharge: Date of : 45 Report #: [id number] THIS REPORT FOR: //name// CC: Aravind Hinkle DATE OF SERVICE: 04/12/2019 INTRODUCTION: The patient is a 73-year-old male who has been admitted to [facility] with a stroke. This patient has been on rehabilitation following a left sided infarct with right sided hemiparesis. The patient has a history of diabetes mellitus, coronary artery disease, who is being seen for general podiatric consultation regarding nail care. The patient has a history of diabetes, which has been under moderately poor control. He denies having history of diabetic foot related complications such as ulcerations and neuropathy. He is up until this point unable to care for his own feet. He does describe having reduced sensation in his both feet and now with his stroke, he believes that his right foot is even more "numb". PEDAL EXAM: Dorsalis pedis, posterior tibial pulses are not palpable. This may be owing to severe lower extremity edema and both of his feet are profoundly edematous. He has ability to sense a soft touch in his opinion and I believe his responses to soft touch sensation are reliable. He indicates that his right foot is less sensitive than the left. DERMATOLOGICAL EXAM: Reveals elongated, thickened nails that are clinically consistent with onychomycosis in varying degrees. Both hallux nails are particularly elongated and have not received attention for many months. There are no acute findings with regard to his dermatologic exam and no other pathology was noted. IMPRESSION: 1. Status post stroke with right-sided hemiparesis. 2. Diabetes mellitus. 3. Onychodystrophy associated with onychomycosis, but both feet. 4. Diabetic peripheral neuropathy. PLAN: The patient's nails were debrided. No additional pathology was noted at the time of treatment. It has been a pleasure having the opportunity caring for this patient. I would be pleased to follow up with him upon request. <ELECTRONICALLY SIGNED> By: Edmundo Walton DPM 04/15/19 1216 [id number] Edmundo Walton DPM /nt
--- NOTE | 2019-04-15 20:55 | NUR ---
PT ASSESSMENT DONE AND VSS. MEDS GIVEN AND WELL TOLERATED. FALL PRECAUTIONS IN PLACE. SLEEPING WELL. HOURLY ROUNDING. CALL LIGHT IN REACH. WILL CONTINUE TO MONITOR.
[2019-04-16 06:12] LABS: ALBUMIN 2.3 g/dL (3.4-5.0); CALCIUM 8.2 mg/dL (8.5-10.1); CREATININE 2.7 mg/dL (0.7-1.3); POTASSIUM 4.1 mmol/L (3.5-5.1)
[2019-04-16 09:00] VITALS: BP 147/57
--- NOTE | 2019-04-16 09:09 | NUR ---
WOUND CARE F/U; I CAME TO ASSESS THIS PATIENT'S WOUNDS TODAY. THE RN TODAY REPORTED THAT SHE HAD DONE THE DRESSINGS ALREADY AND ALL THE WOUNDS ARE STABLE AND IMPROVING, CONTINUE CURRENT POC
--- NOTE | 2019-04-16 09:09 | NUR ---
cm notified that pt insurance will only give auth through 04/19/2019. cm passed on information to 5n team that pt has already told her work that when she will need to be off work for few weeks starting . [employer]n [employer] supervisor is going to talk with . outpt neuropysch card and numbers left with pt to follow up outpt.
[2019-04-16 12:03] LABS: HEMATOCRIT 25.6 % (42.0-52.0); HEMOGLOBIN 8.3 gm/dL (14.0-18.0)
--- NOTE | 2019-04-16 13:48 | NUR ---
ASSUMED CARES AT 0700. PT AWAKE, ALERT AND ORIENTED*4. DENIES PAIN. VITALS REMAIN STABLE. PT CONTINUES TO HAVE BLE EDEMA, EXTREMITIES ELEVATED. SACRAL WOUND CLEANED AND Z-GUARD APPLIED. WOUNDS ON SHARON FEET (TOP) CLEANED AND OPTIFORM DRESSING PLACED. PT VOIDING 150-200 CC, BLADDER SCAN DONE THIS AM 65CC. PT CONTINUES TO HAVE RIGHT SIDED WEAKNESS. UP WITH 1 MOD ASSIST, GB AND WALKER. PARTICIPATED IN ALL THERAPIES AND CONTINUES TO PROGRESS [facility] GOALS
--- NOTE | 2019-04-17 03:39 | NUR ---
ASSUMED CARE AT APPROX 1900 EVENING 04/16. PT SITTING UP IN RECLINER AT CHANGE OF SHIFT. PT ALERT AND ORIENTED X4, APPROPRIATE AND COOPERATIVE. PT TOOK HS MEDS WITH APPLESAUCE TOLERATING WELL. PT APPEARS TO BE SLEEPING SOUNDLY WITH HOURLY ROUNDING CHECKS. BED ALARM ON AND CALL LIGHT IN REACH. WILL CONTINUE TO MONITOR.
[2019-04-17 07:44] VITALS: BP 134/65
--- NOTE | 2019-04-17 13:29 | NUR ---
ASSUMED CARES AT 0700. PT AWKE, ALERT AND ORIENTED*4. VITALS REMAIN STABLE. DENIES PAIN. C/O NASAL/SINUS CONGESTION, FLONASE ORDER RECEIVED AND ADMINISTERED. WOUNDS CLEANED AND ZGUARD APPLIED ON SACRUM, OPTIFORM CHANGED ON BLE. PT UP WITH 1 MIN ASSIST, GB AND WALKER AND TOLERATED WELL. Q1H VISUAL CHECKS. CALL LIGHT WITHIN REACH. FALL PRECAUTIONS IN PLACE
[2019-04-17 19:10] VITALS: BP 141/60
--- NOTE | 2019-04-18 03:09 | NUR ---
ASSUMED CARE AT APPROX 1900 EVENING 04/17. PT ALERT AND ORIENTED X4, PLEASANT AND COOPERATIVE SITTING UP IN RECLINER AT CHANGE OF SHIFT. PT STATED HE HAD A GOOD DAY WITH THERAPY. PT TOOK HS MEDS WITH APPLESAUCE TOLERATING WELL. PT APPEARS TO BE SLEEPING SOUNDLY WITH PRAFO BOOTS ON IN BED. BED ALARM ON AND CALL LIGHT IN REACH. WILL CONTINUE TO MONITOR.
[2019-04-18 08:40] VITALS: BP 143/68
--- NOTE | 2019-04-18 17:45 | NUR ---
ASSUMED CARE OF PT AT 0715. PT IS A&OX4 IS PLEASANT. DENIES PAIN. IS STABLE. IS ON ROOM AIR. IS UP WITH STANDBY ASSIST, GB, WALKER. FALL PRECAUTIONS & HOURLY ROUNDING MAINTAINED THIS SHIFT. LABS & VITALS REVIEWED. DRSGS TO BILAT FEET/ANKLES INTACT. APPLYING BARRIER CREAM TO BUTTOCKS. PT IS CURRENTLY UP IN RECLINER. CALL LIGHT WITHIN REACH. WILL CONTINUE TO MONITOR.
--- NOTE | 2019-04-18 17:49 | NUR ---
PT SPOUSE EXPRESSED THAT PATIENT WILL NEED AN ORDER FOR BEDSIDE COMMODE, ROLLER WALKER, GLUCOMETER, & TEST STRIPS WHEN DISCHARGED. WILL COMMUNICATE TO HS NURSE.
[2019-04-18 20:41] VITALS: BP 138/63
--- NOTE | 2019-04-18 22:59 | NUR ---
PT ASSESSMENT DONE AND VS. MEDS GIVEN AND WELL TOLERATED. FALL PRECAUTIONS IN PLACE. SLEEPING WELL. HOURLY ROUNDING. CALL LIGHT IN REACH. WILL CONTINUE TO MONITOR.
[2019-04-19 05:33] LABS: ALBUMIN 2.3 g/dL (3.4-5.0); CALCIUM 8.4 mg/dL (8.5-10.1); CREATININE 2.1 mg/dL (0.7-1.3); PHOSPHORUS 3.8 mg/dL (2.5-4.9); POTASSIUM 3.6 mmol/L (3.5-5.1)
[2019-04-19 08:00] VITALS: BP 136/59
[2019-04-19] MEDS ORDERED: OTHER MISCELL ×4 (09:03→09:07)
--- NOTE | 2019-04-19 11:19 | NUR ---
WOUND CARE F/U ASSESS ANKLE AND HEEL WOUNDS W/ VP MARKETING SR RUTLEDGE, PT UP IN CHAIR, VP MARKETING STATES SACRAL AREA ASSESSED EARLIER IN DAY AND IS HEALING, L HEEL DRY INTACT,NO DRAINAGE, HEALING, LOWER LEG/ANKLE WOUNDS HEALING, PINK GRANULATING TISSUE, CHANGED EARLIER THIS AM ALSO. PT ALERT, COOPERATIVE, CONTS ON LOW AIR LOSS PUMP RECOMMENDATIONS CONT CURRENT POC, OFF LOADING PRESSURE RELIEF WHEN IN BED, TURN Q 2HOURS. PRAFO BOOTS WHEN IN BED, CONT LOW AIR LOSS PUMP TO BED VP MARKETING AWARE
--- NOTE | 2019-04-19 13:17 | NUR ---
Nutrition followup: pt continues on rehab unit following CVA with Right hemiparesis. Diet upgrade trials with ST but continues on mechanical soft consistency, renal/ADA. ATN with creat now 2.1, stabilized. Wounds all improved per wound care. Endocrinology managing BG. BG 86-170. PO variable/fair. Average intake past several days, 55% of meals. Continues to receive pudding BID with beneprotein powder. Pt asking about diet for home. Discussed at least Sodium restriction and carb controlled. Feel full renal diet no longer indicated? K+/Phos WNL. Will followup prior to D/C for diet review. Low nutrition risk.
--- NOTE | 2019-04-19 15:40 | NUR ---
ASSUMED CARES AT 0700. REPORTS SLEPT GOOD LAST GOOD. PT AWAKE, ALERT AND ORIENTEDX 4.ABLE TO VOICE HER NEEDS. OT GAVE PT SHOWER THIS AM. VSS ON RA. BS 86. NO INSULIN GIVEN. DISCUSSED WITH DR. SALDANA WHO CAME TO SEE PT THIS AM. HE SAID HE WILL STOP INSULIN BEFORE DISCHARGE. PT WILL CONTINUE TO TRAJENTA AND GLIPIZIDE AT HOME. DOCTOR GAVE VERBAL ORDER TO CHECK BS BID WITH SS NOW. PT CONTINUES TO HAVE BLE EDEMA, EXTREMITIES ELEVATED. SACRAL WOUND CLEANED ARE BETTER AND Z-GUARD APPLIED. WOUNDS ON SHARON FEET (TOP) CLEANED AND OPTIFORM DRESSING PLACED. PT VOIDING 200 CC, BLADDER SCAN 85CC NOW. PT DENIES PROBLEM WITH URINATION. COMPLETED URINAL RESIDUAL NOW. PT CONTINUES TO HAVE RIGHT SIDED WEAKNESS. UP WITH 1 MOD ASSIST, GB AND WALKER. PARTICIPATED IN ALL THERAPIES AND CONTINUES TO PROGRESS TOWRADS DC GOALS. PT HAS BEEN UP TO DINNING ROOM FOR MEALS. HIS GOALS TO CONTINUE THERAPY AND WILL BE DISCHARGE HOME WITH HH ON Apr. WAS HERE AND HAS CONCERN AT THIS MOMENT. OFFERED SUPPORTIVE CARE. PT HAS BRIGHT AFFECT. HAD ONE INCONT BM THIS AM. REFUSED MIRALAX AND COLACE SCHEDULE THIS AM. TOOK MEDS WHOLE WITH APPLE SAUCE. REASSESSMENT PER CHART. WILL CONTINUE TO MONITOR.
[2019-04-19 19:25] VITALS: BP 124/64
--- NOTE | 2019-04-19 21:39 | NUR ---
PT ASSESSMENT DONE AND VSS. MEDS GIVEN AND WELL TOLERATED. FALL PRECAUTIONS IN PLACE. SLEEPING WELL. HOURLY ROUNDING. CALL LIGHT IN REACH. WILL CONTINUE TO MONITOR.
[2019-04-20 07:40] VITALS: BP 125/61
--- NOTE | 2019-04-20 09:27 | NUR ---
WOUND CARE F/U ASSESSED BUTTOCKS WOUND THIS AM, ALMOST HEALED, PINK GRANULATING TISSUE PRESENT, NO PAIN RECOMMENDATIONS CONT CURRENT TX W/ ZGUARD DAILY AND PRN, CONT LOW AIR LOSS PUMP TO BED, OFF LOADING/PRESSURE RELIEF WHEN IN BED, PATIENT SERVICES TECHNICIAN AWARE
--- NOTE | 2019-04-20 13:16 | NUR ---
team meeting, recommendation: still requiring assistance with medication , bills and pills. outpt neuropysch - card already provided to and pt to set up outpt appointment after dc. no insulin when dc, will need to check bs at home. need to cont working with st to try and upgrade diet and adls. dc on with hh (pt, ot, st nursing and sw). will need fww.
--- NOTE | 2019-04-20 14:40 | NUR ---
ASSUMED CARES AT 0700. REPORTS SLEPT GOOD LAST GOOD. ALERT AND ORIENTED X4. VSS ON RA. BS 83 THIS AM. MORNING MEDS GIVEN WITH APPLE SAUCE. CONTINUE TO WORK WITH ST FOR SWALLOWING AND COGNITIVE. PT TOOK COLACE REFUSES MIRALAX. LAST BM WAS YESTERDAY. PT CONTINUES TO HAVE BLE EDEMA, EXTREMITIES ELEVATED. SACRAL WOUND CLEANED ARE BETTER AND Z-GUARD APPLIED. WOUNDS ON SHARON FEET (TOP) CLEANED AND OPTIFORM DRESSING PLACED. PT CONTINUES TO HAVE RIGHT SIDED WEAKNESS. UP WITH 1 MOD ASSIST, GB AND WALKER. PARTICIPATED IN ALL THERAPIES AND CONTINUES TO PROGRESS [facility] DC GOALS. PT HAS BEEN UP TO DINNING ROOM FOR MEALS. OFFERED SUPPORTIVE CARE. PT HAS BRIGHT AFFECT. REASSESSMENT PER CHART. WAS HERE FOR TRAINNING. FAMILY WILL PURCHASE GLUCO METER AND RN WILL TRAIN TO CHECK BS WHEN FAMILY BRING IN THEIR OWN GLUCOMETER. WILL CONTINUE TO MONITOR.
[2019-04-20 19:19] VITALS: BP 123/61
--- NOTE | 2019-04-21 02:36 | NUR ---
TURNING SELF SIDE TO SIDE WITH FEET ELEVATED ON PILLOW. C/O COUGH COMING ON THE PAST FEW DAYS, CARE TAKEN TO ELEVATE HEAD WHEN GIVING PILLS ONE AT A TIME WITH APPLESAUCE. Z-GUARD TO SACRUM
[2019-04-21] MEDS ORDERED: TYLENOL325 MG PO (08:19)
[2019-04-21] MEDS ORDERED: PROBIOTIC1 EAC1 PO (08:19)
[2019-04-21] MEDS ORDERED: GLIPIZIDE ER2.5 MG PO (08:20)
[2019-04-21] MEDS ORDERED: MIRALAX17 GM PO (08:20)
[2019-04-21] MEDS ORDERED: TRADJENTA5 MG PO (08:20)
[2019-04-21] MEDS ORDERED: FOLIC ACID1 MG PO (08:21)
[2019-04-21 09:00] VITALS: BP 139/63
--- NOTE | 2019-04-21 11:01 | NUR ---
WOUND CARE F/U ASSESSED WOUNDS HEEL AND ANKLE WOUNDS W/ RN LACTATION JOYCE, LOWER LEG/ANKLE WOUNDS DRY, HEALING, MARATHON PREP APPLIED, LEFT OPEN TO AIR, NEW R HEEL DTI PRESENT, AREA DARK PURPLISH BROWN, NO DRAINAGE, NO S/S INFECTION, L HEEL WOUND DARK BLACK NOW, NO DRAINAGE, NO S/S INFECTION, HAS PRAFO BOOTS IN ROOM REMINDED TO WEAR BOOTS AT ALL TIMES WHEN IN BED AND SHOES OFF, OFF LOADING WHEN IN CHAIR, PT ALERT AND COOPERATIVE, PER RN LACTATION SACRAL AREA HEALING RECOMMENDATIONS CONT ZGUARD TO SACRAL AREA DAILY AND PRN,PAINT BILAT HEELS W/ BETADINE DAILY AND LEAVE OPEN TO AIR, REAPPLY MARATHON PRN LOWER BILAT LEG/ANKLE WOUNDS PRN, WEAR PRAFO BOOTS AT ALL TIMES WHEN IN BED, SHOES OFF WHEN IN CHAIR AND LEGS ELEVATED, OFF LOADING, RN LACTATION AWARE
--- NOTE | 2019-04-21 15:14 | NUR ---
Patient participated in community reintegration on 04/21/19 with OT. Refer to documentation by OT.
--- NOTE | 2019-04-21 18:21 | NUR ---
ASSUMED CARES AT 0700. PT AWAKE, ALERT AND ORIENTED*4. DENIES PAIN. VITALS REMAIN STABLE. PT C/O COUGH WHEN HE LIES DOWN, COUGH DROPS ORDERED. WOUNDCARE TO SACRUM AND BLE COMPLETED. PT CONTINUES TO HAVE BLE EDEMA, EXTREMITIES ELEVATED. UP WITH 1 MIN ASSIST, GB AND WALKER. Q1H VISUAL CHECKS. CALL LIGHT WITHIN REACH. FALL PRECAUTIONS IN PLACE NB: PT TEACHING ON USING NEW GLUCOMETER COMPLETED AND PT'S WILL DO A TEACH BACK TOMORROW, DEMONSTRATING HOW SHE WILL BE PERFORMING IT AT HOME.
[2019-04-21 20:43] VITALS: BP 145/85
--- NOTE | 2019-04-22 02:28 | NUR ---
TURNING SIDE TO SIDE WITH ENCOURAGEMENT, PRAFO BOOTS IN PLACE. USING URINAL. APPRECIATES TUSHAR PAPPAS. BM AT HS, DECLINES ORDERED LAXATIVES EXCEPT SENNEKOT
[2019-04-22 10:15] VITALS: BP 137/47
--- NOTE | 2019-04-22 10:17 | NUR ---
cm spoke with on phone call, " i was up there already today before going to work, and spoke with therapy. i guess a little notice would be nice, i will be picking him up later today after work. i had to let the kids know so they can help get into the apartment. maybe the weather.?"/mark. education that i would confirm with the team and get back with her, [facility] (pt, ot, st, nursing and sw ), has be set up already, hh will call and set up appointment 24 to 48 hr after dc home. provider plus will deliver fww prior to dc today. . "thank you so much"/mark. will cont following as needed for dc needs.
--- NOTE | 2019-04-22 10:28 | NUR ---
DISCHARGE/HOME HEALTH ORDERS COMPLETED AND FAXED TO [facility] INTAKE. CALL PLACED TO [facility], SPOKE WITH ALEX, INTAKE. VERIFIED RECEIVED. ALEX TO FACILITATE.
[2019-04-22 10:38] VITALS: BP 137/47
[2019-04-22 11:23] LABS: ALBUMIN 2.5 g/dL (3.4-5.0); CALCIUM 8.7 mg/dL (8.5-10.1); CREATININE 2.2 mg/dL (0.7-1.3); PHOSPHORUS 3.4 mg/dL (2.5-4.9)
[2019-04-22 15:15] VITALS: BP 137/47
--- NOTE | 2019-04-22 18:10 | NUR ---
LATE ENTRY: DC MEDICATION CHANGE: PER [facility], TRAJENTA IS NOT ALLOWED BY PT'S INSURANCE, AND TEST STRIPS NEEDED TO BE ORDERED. DR. CROSS WAS NOTIFIED AND JANUVIA 50 MG PO DAILY X 1 MONTH SUPPLY WAS ORDERED, WELL THE ACCUCHECK GUIDE TEST STRIPS 1 MONTH SUPPLY. THESE WERE CALLED TO THE [facility] ON [address].
--- NOTE | 2019-04-22 21:41 | NUR ---
ASSUMED CARE OF PT AT 0715. PT IS A&OX4 AND VITAL SIGNS ARE STABLE. PT DENIES PAIN AND PARTICIPATED IN SCHEDULED THERAPIES. ORDERS FOR DISCHARGE TODAY. DISCUSSED WITH DISCHARGE MEDICATIONS, EDUCATION, AND INSTRUCTIONS. DEMONSTRATED ACCU CHECK WITH NURSE THIS SHIFT AND REPORTS FEELING COMFORTABLE CHECKING BLOOD GLUCOSE AT HOME PER ORDERS. PT AND ASSITED OFF UNIT BY [facility] TRANSPORT AT 1600.
--- NOTE | 2019-04-23 10:08 | NUR ---
THE PATIENT'S CALLED THE NURSE'S STATION THIS MORNING AND LEFT A MESSAGE THAT THE FOLLOWING MEDICATIONS WERE NOT SOMETHING THAT THE PATIENT PREVIOUSLY HAD AT HOME: APIXABAN 5 MG PO BID, AMIODARONE HCL 400 MG PO DAILY, AND ATORVASTATIN CALCIUM 40 MG PO AT BEDTIME. THESE 3 MEDICATIONS WERE VERIFIED WITH DR. SANDIE ELLIOTT THIS MORNING, AND HE APPROVED THEM TO BE CALLED TO THE PATIENT'S PHARMACY. THESE MEDICATIONS WERE LEFT ON THE PHARMACY VOICEMAIL LINE, RECOMMENDED BY THE PHARMACY STAFF FOR [facility].
== END 2019-04-22 15:30 | disposition home health service (06) | DRG 56 ==
LOC: ENTRNSPT 04-22 16:04 → EDTRNSPTSTS 04-22 16:08
PROVIDERS: Hospitalist; Nurse Practitioner; Nurse Practitioner Family; ADMIT Physical Medicine & Rehabilitation
PROC: 0HBRXZZ Excision of Toe Nail, External Approach (ICD-10-PCS; principal; 2019-04-12)
DX: I69.351 Hemiplegia and hemiparesis following cerebral infarction affecting right dominant side (principal); I63.9 Cerebral infarction, unspecified; J96.00 Acute respiratory failure, unspecified whether with hypoxia or hypercapnia; N17.0 Acute kidney failure with tubular necrosis; I42.9 Cardiomyopathy, unspecified; E87.0 Hyperosmolality and hypernatremia; G93.40 Encephalopathy, unspecified; B37.49 Other urogenital candidiasis; I25.10 Atherosclerotic heart disease of native coronary artery without angina pectoris; E78.5 Hyperlipidemia, unspecified; E11.51 Type 2 diabetes mellitus with diabetic peripheral angiopathy without gangrene; R13.10 Dysphagia, unspecified; R47.1 Dysarthria and anarthria; I35.1 Nonrheumatic aortic (valve) insufficiency; E11.22 Type 2 diabetes mellitus with diabetic chronic kidney disease; I12.9 Hypertensive chronic kidney disease with stage 1 through stage 4 chronic kidney disease, or unspecified chronic kidney disease; I48.0 Paroxysmal atrial fibrillation; E11.42 Type 2 diabetes mellitus with diabetic polyneuropathy; L60.3 Nail dystrophy; N18.9 Chronic kidney disease, unspecified; F01.50 Vascular dementia, unspecified severity, without behavioral disturbance, psychotic disturbance, mood disturbance, and anxiety; D50.9 Iron deficiency anemia, unspecified; E11.65 Type 2 diabetes mellitus with hyperglycemia; Z83.3 Family history of diabetes mellitus; Z82.49 Family history of ischemic heart disease and other diseases of the circulatory system; Z87.891 Personal history of nicotine dependence; Z79.84 Long term (current) use of oral hypoglycemic drugs; Z79.899 Other long term (current) drug therapy; Z86.74 Personal history of sudden cardiac arrest
CPT/HCPCS: 10112

== ENCOUNTER 2019-05-18 05:15 | Inpatient (IN) | payer BC, OTHER ==
[~2019-05-18] VITALS: Ht 182.9 cm; Wt 83.9 kg
--- NOTE | ~2019-05-18 | HC ---
[facility] [place] [address] CONSULTATION Name: KASI EVERETT Room #: 355-P ADM IN M.R.#: [id number] Admission: 05/18/19 Attend Phys: Arturo Kruse MD Discharge: Date of : 45 Report #: [id number] THIS REPORT FOR: cc: Homar Hinkle MD, Kirk D. MD Smithson, David G. MD ~ CC: Homar Kruse DATE OF SERVICE: 05/19/2019 HISTORY OF PRESENT ILLNESS: The patient is a 73-year-old -Burm[place] male previously known to me from a prior CVA with left watershed infarcts, right hemiparesis, was on the acute inpatient rehab colon from 04/02/2019, discharged on 04/22/2019. The patient showed improvement post CVA. He was ambulating 250 feet front-wheeled walker, going up and down 8 steps. He was able to be discharged home with home healthcare and his and family providing 24 x 7 supervision. The patient has been at home. He has been doing well, but started to retain fluid. He was readmitted, noted to have mcuiu-iq-aiawyka systolic congestive heart failure. He has been diuresed with IV Lasix, fluid restriction, daily weights. There was also thought to be likely element of aspiration pneumonia as well. He is on IV antibiotics. He does have cardiomyopathy, paroxysmal atrial fibrillation. We are seeing him in rehabilitation medicine consultation. PAST MEDICAL HISTORY: Prior multiple left watershed infarcts back in 03/25/2019 as noted. He has a history of peripheral arterial disease, diabetes mellitus type 2, hypertension. MEDICATIONS: Please see the full medication listing. ALLERGIES: No known drug allergies. SOCIAL HISTORY: Lives with his , apartment, 5-6 steps in. Uses a walker. His works for ____. There is a daughter or a son that would be there and have been working out a schedule to assist the patient. He is typically never left alone for more than an hour. REVIEW OF SYSTEMS: No current complaints of chest pain, shortness of breath or abdominal discomfort. PHYSICAL EXAMINATION: GENERAL: A 73-year-old -Burmese male in no obvious distress. VITAL SIGNS: Last recorded temperature 98, pulse 59, respirations 17, blood pressure 143/62. The patient is alert. HEENT: Appeared to be benign. [address] [address] CONSULTATION Name: KASI EVERETT Room #: 355-P ADM IN M.R.#: [id number] Admission: 05/18/19 Attend Phys: Arturo Kruse MD Discharge: Date of : 45 Report #: [id number] NEUROLOGIC: Cranial nerves are grossly intact. Functional range of motion of both upper extremities, strength is grade 4-/5. DTRs are trace to 1. Lower extremities, no focal calf swelling, functional range of motion, strength is grade 4-/5. He might have some residual right-sided hemiparesis, but appears to be moving both upper and lower extremities relatively symmetrically. He has been working in therapies with transfers, min assist sit to stand. Gait min assist 150 feet front-wheeled walker. Speech therapy is following. He is on mechanical soft diet with thin liquids. In occupational therapy, he is supervision for toileting, min assist tub/shower transfer, min assist lower body dressing. ASSESSMENT: A 73-year-old -Burmese male previously known to me with the following problem list: 1. Epekk-sq-akmfhig systolic congestive heart failure. 2. Prior left posterior parietal CVAs with some residual right hemiparesis. 3. Pneumonia, likely an element of aspiration pneumonia. 4. Cardiomyopathy. 5. Paroxysmal atrial fibrillation. 6. Hypertension. 7. Carotid artery disease. PLAN: The patient was just discharged post his CVAs from the rehab colon on 04/22/2019. He is being treated for his congestive heart failure and pneumonia. He appears to be improving with his overall function, needing min assist up with the walker. He is hoping to return directly home with home healthcare rather than going for any further rehabilitation services per se. Family is present and assist him essentially 24 x 7 day and week. We would anticipate that there should be a good plan for him to return directly home as he further medically stabilizes. At this point, we will continue to follow along with you for now. By: 1432 [id number] Aravind Mccrary MD /nt
[~2019-05-18 05:15] MED LIST changes: +FOLIC ACID1 MG PO; +GLIPIZIDE ER2.5 MG PO; +MIRALAX17 GM PO; +OTHER MISCELL; +PROBIOTIC1 EAC1 PO; +TRADJENTA5 MG PO; +TYLENOL325 MG PO
[2019-05-18 05:20] VITALS: BP 159/42
[2019-05-18] MEDS ORDERED: JANUVIA 50 MG T50 M1 PO (05:31)
[2019-05-18] MEDS ORDERED: GLIPIZIDE 10 MG10 MG PO (05:31)
[2019-05-18] MEDS ORDERED: SPIRONOLACTONE25 MG PO (05:33)
[2019-05-18 06:30] LABS: ABSOLUTE NEUTROPHILS 7.4 thou/uL (1.4-8.2); BASOPHILS 0.6 % (0.0-2.0); EOSINOPHILS 0.8 % (0.0-3.0); HEMATOCRIT 35.7 % (42.0-52.0); HEMOGLOBIN 11.1 gm/dL (14.0-18.0); LYMPHOCYTES 24.2 % (24.0-44.0); MCHC 31.2 g/dL (28.0-37.0); MCV 86.7 fL (80.0-100.0); MONOCYTES 7.9 % (1.0-8.0); PLATELET COUNT 299 thou/uL (150-400); POLYS 66.5 % (36.0-66.0); RBC 4.12 mil/uL (4.50-6.00); RDW 16.3 % (10.5-14.5); WBC 11.1 thou/uL (4.0-11.0)
[2019-05-18 06:43] LABS: ANION GAP 11 mmol/L (7-16); BUN 16 mg/dL (7-18); CALCIUM 9.1 mg/dL (8.5-10.1); CHLORIDE 100 mmol/L (98-107); CO2 25 mmol/L (21-32); CREATININE 1.7 mg/dL (0.7-1.3); GLUCOSE 176 mg/dL (74-106); POTASSIUM 4.3 mmol/L (3.5-5.1); SODIUM 136 mmol/L (136-145)
[2019-05-18 06:51] LABS: TROPONIN-I <0.06 ng/mL (<0.06)
[2019-05-18 08:41] VITALS: BP 143/63
--- NOTE | 2019-05-18 10:43 | NUR ---
PT admitted to 3W AT 0845, ALERT AND ORIENTED x4. with pt. Pt situated and oriented to room. pt on 2L of oxygen. Denies any pain. bilateral lower extremity edema, 2+. Assessment and admission paperowrk completed. Pt censens forms signed. Call light in reach, table closeby and bed alarm on. Pt denies any other needs. Will continue to monitor.
[2019-05-18 11:52] VITALS: BP 145/69
[2019-05-18 16:33] VITALS: BP 145/66
[2019-05-18 19:35] VITALS: BP 123/45
[2019-05-19 03:49] VITALS: BP 125/62
--- NOTE | 2019-05-19 05:00 | NUR ---
sleeping throught the night. no concerns voiced. he continues on iv antibiotics. careplan reviewed.
[2019-05-19 06:19] LABS: CALCIUM 8.5 mg/dL (8.5-10.1); CREATININE 1.9 mg/dL (0.7-1.3)
[2019-05-19 08:00] VITALS: BP 143/62
--- NOTE | 2019-05-19 10:06 | 2DMMODE ---
[facility] [place] [address] 2 D/M-MODE ECHOCARDIOGRAM Name: KASI EVERETT Room #: 355-P ADM IN M.R.#: [id number] Admission: 05/18/19 Attend Phys: Arturo Kruse MD Discharge: Date of : 45 Report #: [id number] THIS REPORT FOR: cc: Homar Hinkle MD, Kirk D. MD Lammoglia, Francisco J. MD ~ APPROVED REPORT Study performed: 05/19/2019 09:08:02 EXAM: Comprehensive 2D, Doppler, and color-flow Echocardiogram Patient Location: Echo lab Room #: [facility] Status: routine BSA: 2.06 HR: 58 bpm BP: 125/62 mmHg Rhythm: NSR Other Information Study Quality: Good Indications Short of breath, CHF. Hx: CAD, cardiomyopathy, Afib, CVA, PVD, HTN, DM. 2D Dimensions RVDd: 36.66 mm IVSd: 12.00 (7-11mm) LVOT Diam: 23.42 (18-24mm) LVDd: 61.00 mm PWd: 11.19 (7-11mm) Ascending Ao: 41.50 (22-36mm) LVDs: 55.25 (25-40mm) Aortic Root: 42.99 mm Volumes Left Atrial Volume (Systole) Single Plane 4CH: 102.23 mL Single Plane 2CH: 103.82 mL LA ESV Index: 53.00 mL/m2 Aortic Valve AoV Peak Gavin.: 1.70 m/s AO Peak Gr.: 11.53 mmHg LVOT Max P.15 mmHg LVOT Max V: 0.89 m/s ZACHARY Vmax: 2.25 cm2 [facility] [address] [place] [address] 2 D/M-MODE ECHOCARDIOGRAM Name: TREYKASI LIVINGSTON Room #: 355-P [facility] IN [facility].#: [id number] Admission: 05/18/19 Attend Phys: Arturo Kruse MD Discharge: Date of : 45 Report #: [id number] AI Vmax: 3.71 m/s AI Norman: 2.38 m/s2 AI PHT: 452.13 ms Mitral Valve E/A Ratio: 0.8 MV Decel. Time: 388.73 ms MV E Max Gavin.: 0.58 m/s MV A Gavin.: 0.74 m/s MV PHT: 112.73 ms Pulmonary Valve PV Peak Gavin.: 0.82 m/s PV Peak Gr.: 2.69 mmHg Pulmonary Vein P Vein S: 0.28 m/s P Vein D: 0.34 m/s P Vein S/D Ratio: 0.82 Tricuspid Valve TR Peak Gavin.: 2.28 m/s RAP Estimate: 5.00 mmHg TR Peak Gr.: 21.00 mmHg PA Pressure: 26.00 mmHg Left Ventricle Left ventricle is mildly to moderately dilated. Via inferior wall hypokinesis to akinesis noted superimposed on global hypokinesis Mild concentric left ventricular hypertrophy. Left ventricular systolic function is severely decreased. LVEF is 25%. Mild diastolic dysfunction is present (impaired relaxation pattern). Right Ventricle The right ventricle is normal size. The right ventricular systolic function is normal. Atria Left atrium is moderately dilated. The right atrium size is normal. Aortic Valve The aortic valve is normal in structure; mildly sclerotic. Moderate aortic regurgitation. There is no aortic valvular stenosis. Mitral Valve The mitral valve is normal in structure. Trace mitral regurgitation. [facility] [address] [place] [address] 2 D/M-MODE ECHOCARDIOGRAM Name: KASI EVERETT Room #: 355-P ADM IN .R.#: [id number] Admission: 05/18/19 Attend Phys: Arturo Kruse MD Discharge: Date of : 45 Report #: [id number] Tricuspid Valve The tricuspid valve is normal in structure. Trace tricuspid regurgitation. Estimated PAP is 25-30mmHg. Pulmonic Valve The pulmonary valve is normal in structure. Trace pulmonic regurgitation. Great Vessels Aortic root is dilated at 4.3cm The ascending aorta is dilated at 4.1cm. IVC is normal in size and collapses >50% with inspiration. Pericardium There is no pericardial effusion. Bilateral pleural effusions noted. <Conclusion> Left ventricle is mildly to moderately dilated. LVEF is 25%. Via inferior wall hypokinesis to akinesis noted superimposed on global hypokinesis Left atrium is moderately dilated. The aortic valve is normal in structure; mildly sclerotic. Moderate aortic regurgitation. The mitral valve is normal in structure. Trace mitral regurgitation. The tricuspid valve is normal in structure. Trace tricuspid regurgitation. Estimated PAP is 25-30mmHg. The pulmonary valve is normal in structure. Trace pulmonic regurgitation. Aortic root is dilated at 4.3cm The ascending aorta is dilated at 4.1cm. There is no pericardial effusion. <ELECTRONICALLY SIGNED> By: Jose Copeland MD 05/19/19 1005 1005 1005 Jose Copeland MD /INF
--- NOTE | 2019-05-19 12:32 | NUR ---
INITIAL ASSESSMENT: Received consult. SW reviewed chart and spoke with nursing and attending physician. Pt was admitted from home due to CHF/Pneumonia. Pt with recent stay on [facility] and was discharged home on 04/22 with [facility] . Pt is currently on service with . [facility] consulted to evaluate pt for possible admission. SW met with pt at bedside. Introduced role of SW. Pt reports he lives at home with his . Prior to admission, pt was using a roller walker. 12 steps to enter the home. No steps inside. Pt's PCP is Dr. Homar Hinkle. Awaiting input from . LORENZO updated [facility] liaison. maintenance planner to fax referral to later today or tomorrow. LORENZO is following to assist as needed with discharge planning.
--- NOTE | 2019-05-19 12:34 | EKG ---
[facility] [place] [address] ELECTROCARDIOGRAM REPORT Name: KASI EVERETT [place] Room #: 355- ADM IN M.R.#: [id number] Admission: 05/18/19 Attend Phys: Arturo Kruse MD Discharge: Date of : 45 Report #: [id number] THIS REPORT FOR: cc: Homar Hinkle MD, Kirk D. MD Lundgren, Craig H. MD [facility] ~ THIS REPORT FOR: //name// [facility] ED Test Date: 2019-05-18 Test Time: 05:43:55 Pat Name: KASI EVERETT Department: Room: [facility] Gender: M Staff Midwife: BRYN : 1945 Requested By: Elias Yeung Order Number: [id number] MD: Paco Landeros Measurements Intervals [place] Rate: 57 P: -30 VT: 167 QRS: -36 QRSD: 161 T: 143 QT: 495 QTc: 482 Interpretive Statements Sinus rhythm LVH with IVCD, LAD and secondary repol abnrm Borderline prolonged QT interval Baseline wander in lead(s) V2 no previous ECGs available for comparison Electronically Signed On 05-18-2019 9:17:46 FITNESS COORDINATOR by Paco Landeros [email or web address] <ELECTRONICALLY SIGNED> By: Paco Landeros MD, [facility] 05/18/19 0917 0543 0543 Paoc Landeros MD, [facility] /EPI
--- NOTE | 2019-05-19 15:05 | NUR ---
assumed care of pt at 0700. pt alert and oriented in no acute distress. now on room air. iv abx infsuing per order. episode of incontinence this morning after given iv lasix. vitals stable. up w/ sba. bathed with pt/ot. pt progressing toward poc goals.
[2019-05-19 16:29] VITALS: BP 121/50
[2019-05-19 19:48] VITALS: BP 134/60
[2019-05-20 03:03] VITALS: BP 139/61
[2019-05-20 07:07] LABS: CALCIUM 8.4 mg/dL (8.5-10.1); CREATININE 1.9 mg/dL (0.7-1.3); POTASSIUM 3.9 mmol/L (3.5-5.1)
--- NOTE | 2019-05-20 07:38 | NUR ---
ASSUMED CARE AT 1900. PT DENIES PAIN OR NAUSEA, DENIES SOB. SATTING WELL ON RA. TRACE EDEMA BLE, R>L. IV ABX GIVEN OVERNIGHT. PT HAD A MEDIUM SOFT BM THIS AM. NO OTHER CONCERNS, SHIFT REPORT GIVEN AT O700.
[2019-05-20 07:44] VITALS: BP 103/81
[2019-05-20 10:51] LABS: HEMATOCRIT 33.5 % (42.0-52.0); HEMOGLOBIN 10.7 gm/dL (14.0-18.0); MCH 27.7 pg (26.0-34.0); MCHC 31.8 g/dL (28.0-37.0); MCV 86.9 fL (80.0-100.0); RBC 3.85 mil/uL (4.50-6.00); RDW 16.5 % (10.5-14.5); WBC 8.7 thou/uL (4.0-11.0)
--- NOTE | 2019-05-20 10:57 | NUR ---
FAXED REFERRAL TO [facility] SPOKE WITH ALEX IN INTAKE SHE RECEIVED REFERRAL AND CAN ACCEPT AT [facility].
[2019-05-20 10:58] VITALS: BP 103/81
[2019-05-20 15:10] VITALS: BP 124/56
[2019-05-20 15:20] VITALS: BP 116/53
--- NOTE | 2019-05-20 16:47 | NUR ---
SW reviewed chart and spoke with nursing and attending physician. Pt is progressing towards goals for discharge. SW discussed with rn rehabilitation. Pt does not have a new rehab dx for admission to . Per therapy and rehab, pt should be able to return home and resume HH services. [facility] liaison onsite earlier today and met with pt. SW met with pt at bedside to provide discharge plan. Pt's goal is to return home with HH services when medically stable. SW is following to assist as needed with discharge planning.
[2019-05-20 19:34] VITALS: BP 123/57
--- NOTE | 2019-05-20 20:09 | NUR ---
Assumed care approx. 0700 this AM. Pt ALOx4 and remains on room air. No complaints of shortness of breath or pain. Pt calls appropriately when needing assistance. Pt in chair most of the shift. No new changes noted. Pt progressing toward plan of care goals.
[2019-05-21 04:03] VITALS: BP 141/59
[2019-05-21 07:58] VITALS: BP 148/66
--- NOTE | 2019-05-21 08:13 | HC ---
[facility] [place] [address] CONSULTATION Name: KASI EVERETT Room #: 355-P ADM IN M.R.#: [id number] Admission: 05/18/19 Attend Phys: Arturo Kruse MD Discharge: Date of : 45 Report #: [id number] THIS REPORT FOR: cc: Homar Hinkle MD, Kirk D. MD Al-Absi,Nancy Raymond MD ~ CC: Homar Kruse REASON FOR CONSULTATION: Elevated creatinine. REASON FOR PRESENTATION: Shortness of breath. HISTORY OF PRESENT ILLNESS: This is a very well-known patient to me. He was just discharged from the hospital after a prolonged hospital stay for cardiac arrest. He was in the ICU for an extended period of time. He is known to have hypertension with cardiomyopathy, diabetes mellitus and hypertension. His ejection fraction is around 25%. The patient also ended up with a stroke and had spent some time in the rehabilitation floor. He presented with increasing lower extremity swelling and shortness of breath. Creatinine was 1.9. I am being consulted to manage end-stage renal disease. PAST MEDICAL HISTORY: 1. Cardiomyopathy. 2. Coronary artery disease. 3. Recent cardiac arrest. 4. Carotid artery disease. 5. Hypertension. 6. Diabetes mellitus. 7. Aortic stents. 8. Last's esophagus. 9. Hiatal hernia repair. SOCIAL HISTORY: He lives with his . REVIEW OF SYSTEMS: GENERAL: No fever or chills. CARDIOVASCULAR: No chest pain or palpitation. PULMONARY: Significant for shortness of breath. GASTROINTESTINAL: No nausea or vomiting. GENITOURINARY: No frequency, no urgency. MEDICATIONS: 1. Amiodarone. 2. Atorvastatin. 3. Metoprolol. 4. [address] [facility] [address] [place] [address] CONSULTATION Name: KASI EVERETT Room #: 355-P ADM IN M.R.#: [id number] Admission: 05/18/19 Attend Phys: Arturo Kruse MD Discharge: Date of : 45 Report #: [id number] 5. Glipizide. ALLERGIES: None. FAMILY HISTORY: Hypertension. PHYSICAL EXAMINATION: GENERAL: Alert, oriented, in no apparent distress. VITAL SIGNS: Blood pressure is 121/50, temperature is 36.6. HEAD AND NECK: No jugular venous distention. CHEST: Decreased air entry bilaterally with basilar crackles. CARDIOVASCULAR: Regular with no rub. ABDOMEN: Soft, nontender. EXTREMITIES: Lower extremities, +3 edema. LABORATORY DATA: Reviewed. White blood cell count was ____ elevated, creatinine is at baseline at 1.9. IMPRESSION AND PLAN: 1. Chronic kidney disease, baseline creatinine of around 1.9. 2. Aspiration pneumonia. 3. Hypertension. 4. Recent cerebrovascular accident. 5. Continue with the current diuretic regimen. The patient seems to be stable from the renal side. 6. We will bridge him over to an oral diuretic regimen in the next few days. <ELECTRONICALLY SIGNED> By: Nancy Elias MD 05/21/19 0813 1755 2257 Nancy Elias MD /nt
--- NOTE | 2019-05-21 08:25 | NUR ---
ASSUMED CARE AT 1900. PT DENIED PAIN, NAUSEA, OR SOB; C/O DRY/NONPRODUCTIVE COUGH. ACCUCHECKS TRENDING UP, HS BS WAS 266. HAD A BM THIS AM. GOOD URINE OUTPUT WITH PO DIURETICS. NO OTHER CONCERNS, SHIFT REPORT GIVEN AT 0700.
[2019-05-21] MEDS ORDERED: PACERONE 200 M200 M1 PO (13:14)
[2019-05-21] MEDS ORDERED: DEMADEX20 MG PO (13:14)
[2019-05-21] MEDS ORDERED: METOPROLOL SUCC50 MG PO (13:14)
[2019-05-21] MEDS ORDERED: AUGMENTIN 875-1 EACH PO (13:14)
[2019-05-21 14:52] VITALS: BP 103/81
[2019-05-21 15:08] VITALS: BP 103/81
--- NOTE | 2019-05-21 15:25 | NUR ---
DISCHARGE NOTE: SW reviewed chart and spoke with nursing and attending physician. Pt is medically stable for discharge home today with HH services. SW met with pt at bedside to provide update and discuss discharge plan. Pt is aware and agreeable with plan. Pt's to provide transportation home. Discharge orders/summary faxed to [facility]. SW notified HH liaison of pt's discharge. Contact info for HH placed in pt's discharge summary. No additional SW needs identified at this time, but is available to assist should needs arise.
--- NOTE | 2019-05-21 16:50 | NUR ---
FAXED DC ORDERS/SUMMARY TO [facility] SPOKE WITH ALEX IN INTAKE SHE RECEIVED DC ORDERS AND WILL NOTIFY PT TIME OF VISITS.
== END 2019-05-21 16:01 | disposition home or self-care (01) | DRG 177 ==
LOC: ER 05:15 → EROBS 07:23 → 3W 07:23
PROVIDERS: Emergency Medicine; Nurse Practitioner; Nurse Practitioner Adult Health; ADMIT Internal Medicine
DX: J69.0 Pneumonitis due to inhalation of food and vomit (principal); I50.23 Acute on chronic systolic (congestive) heart failure; J96.01 Acute respiratory failure with hypoxia; I13.0 Hypertensive heart and chronic kidney disease with heart failure and stage 1 through stage 4 chronic kidney disease, or unspecified chronic kidney disease; N17.9 Acute kidney failure, unspecified; N18.4 Chronic kidney disease, stage 4 (severe); I69.351 Hemiplegia and hemiparesis following cerebral infarction affecting right dominant side; I42.9 Cardiomyopathy, unspecified; I25.10 Atherosclerotic heart disease of native coronary artery without angina pectoris; E11.51 Type 2 diabetes mellitus with diabetic peripheral angiopathy without gangrene; E78.5 Hyperlipidemia, unspecified; K21.9 Gastro-esophageal reflux disease without esophagitis; K22.70 Barrett's esophagus without dysplasia; I48.0 Paroxysmal atrial fibrillation; I65.23 Occlusion and stenosis of bilateral carotid arteries; E11.22 Type 2 diabetes mellitus with diabetic chronic kidney disease; R53.81 Other malaise; N40.0 Benign prostatic hyperplasia without lower urinary tract symptoms; G47.00 Insomnia, unspecified; Z95.820 Peripheral vascular angioplasty status with implants and grafts; Z79.899 Other long term (current) drug therapy; Z79.84 Long term (current) use of oral hypoglycemic drugs; Z86.74 Personal history of sudden cardiac arrest; Z79.01 Long term (current) use of anticoagulants; Z82.49 Family history of ischemic heart disease and other diseases of the circulatory system; Z83.3 Family history of diabetes mellitus; Z87.891 Personal history of nicotine dependence; Z28.21 Immunization not carried out because of patient refusal
CPT/HCPCS: 10879

== ENCOUNTER → 2019-06-17 | Outpatient (CLI) | payer BC, OTHER ==
[~2019-06-17] MED LIST changes: +AUGMENTIN 875-1 EACH PO; +DEMADEX20 MG PO; +GLIPIZIDE 10 MG10 MG PO; +JANUVIA 50 MG T50 M1 PO; +SPIRONOLACTONE25 MG PO
== END ==
LOC: SJCVCIMAG 13:10
DX: I35.1 Nonrheumatic aortic (valve) insufficiency (principal); I11.0 Hypertensive heart disease with heart failure; I50.9 Heart failure, unspecified; I25.10 Atherosclerotic heart disease of native coronary artery without angina pectoris; I42.9 Cardiomyopathy, unspecified; I48.91 Unspecified atrial fibrillation; I73.9 Peripheral vascular disease, unspecified; E11.9 Type 2 diabetes mellitus without complications; I31.3 Pericardial effusion (noninflammatory); Z86.73 Personal history of transient ischemic attack (TIA), and cerebral infarction without residual deficits

== ENCOUNTER → 2019-07-13 | Outpatient (CLI) | payer BC, OTHER | LOC: SJCVCIMAG 08:44 | PROVIDERS: ATTEND Internal Medicine Cardiovascular Disease | DX: I42.9 Cardiomyopathy, unspecified (principal); I25.10 Atherosclerotic heart disease of native coronary artery without angina pectoris; I48.0 Paroxysmal atrial fibrillation; E78.00 Pure hypercholesterolemia, unspecified; I65.23 Occlusion and stenosis of bilateral carotid arteries; I12.9 Hypertensive chronic kidney disease with stage 1 through stage 4 chronic kidney disease, or unspecified chronic kidney disease; E11.22 Type 2 diabetes mellitus with diabetic chronic kidney disease; N18.4 Chronic kidney disease, stage 4 (severe); E78.5 Hyperlipidemia, unspecified; Z86.74 Personal history of sudden cardiac arrest; Z86.73 Personal history of transient ischemic attack (TIA), and cerebral infarction without residual deficits; Z82.49 Family history of ischemic heart disease and other diseases of the circulatory system; Z87.891 Personal history of nicotine dependence; Z79.899 Other long term (current) drug therapy ==

== ENCOUNTER → 2019-10-19 | Outpatient (CLI) | payer BC, OTHER | LOC: ULTRA 14:14 | PROVIDERS: ATTEND Hospitalist | DX: N18.3 Chronic kidney disease, stage 3 (moderate) (principal); N28.89 Other specified disorders of kidney and ureter ==

== ENCOUNTER → 2019-12-06 | Outpatient (CLI) | payer BC, OTHER ==
[~2019-12-06] MED LIST changes: +BENICAR40 MG PO; +GLIPIZIDE ER5 MG PO; +JANUVIA50 MG PO; +PACERONE200 MG PO; +PROBIOTIC1 EAC7 PO; +TORSEMIDE20 MG PO
== END ==
LOC: SJCVCIMAG 09:21
PROVIDERS: ATTEND Internal Medicine Cardiovascular Disease
DX: I08.8 Other rheumatic multiple valve diseases (principal); I25.10 Atherosclerotic heart disease of native coronary artery without angina pectoris; I42.8 Other cardiomyopathies; I11.0 Hypertensive heart disease with heart failure; I50.9 Heart failure, unspecified; Z87.891 Personal history of nicotine dependence

== ENCOUNTER → 2019-12-17 | Outpatient (CLI) | payer BC, OTHER ==
[~2019-12-17] VITALS: Ht 182.9 cm; Wt 81.7 kg
--- NOTE | 2019-12-20 18:06 | PATH ---
[facility] [address] [place] [address] PATHOLOGY RPT PROCEDURE Name: KASI CHA Room #: REG MARKEL Castillo#: [id number] Admission: 12/17/19 Date of : 45 Discharge: Report #: [id number] Path Case #: [id number] [facility] Accession Number: [id number] . 01 Material submitted: . esophagus - BIOPSY OF DISTAL ESOPHAGUS. Modifiers: distal . 01 Clinical history: . HX OF OQEUNDO'S . 02 Diagnosis: Gastroesophageal mucosa, distal esophagus, endoscopic biopsy: - Specialized columnar epithelium (gastric cardia-type mucosa) with intestinal metaplasia, consistent with Oquendo's metaplasia. - Moderate acute and chronic inflammation. - Negative for dysplasia. - Focal squamous mucosa with mild esophagitis. . (IUV:mml; 12/20/2019) QL 12/20/2019 1738 Local . 02 Comment: Dr. iVka Duncan has seen software sales representative slide of this case and concurs with my diagnosis. . The above diagnosis of Oquendo's esophagus is made due to presence of intestinal metaplasia and with the assumption that the biopsies were obtained from the columnar mucosa in the distal esophagus located at least 1 cm proximal to the top of the gastric folds as per the 2016 ACG guidelines. . (IUV:mml; 12/20/2019) . 02 Electronically signed: . Janneth Maza MD, Pathologist NPI- [id number] . 01 Gross description: . Received in formalin labeled "Kasi Cha BX of distal esophagus" are multiple madrigal-brown soft tissue fragments measuring in aggregate 1.1 x 0.6 x 0.1 cm. The specimen is submitted entirely in A1. ([facility]; 12/19/2019) [facility] 12/19/2019 1436 Local . 02 Pathologist provided ICD-10: K22.70, K20.9 . 02 [place] [address] PATHOLOGY RPT PROCEDURE Name: KASI CHA [facility] [id number] Admission: 12/17/19 Date of : 45 Discharge: Report #: [id number] Path Case #: [id number] Specimen Comment: A courtesy copy of this report has been sent to [phone] Specimen Comment: [phone], Specimen Comment: Report sent to ,DR BONILLA / DR PENA Performed at: [address] [facility], [place], [place] [id number] MD Juan Edgar MD Phone: [phone] Performed at: [address] [facility] [id number] MD Janneth Maza MD Phone: [phone]
--- NOTE | 2019-12-22 08:45 | P ---
[facility] [place] [address] PROCEDURE REPORT Name: KASI EVERETT Room #: REG MARKEL Castillo#: [id number] Admission: 12/17/19 Attend Phys: Perry Gonzalez Discharge: Date of : 45 Report #: [id number] THIS REPORT FOR: cc: Homar Hinkle MD, Kirk D. MD McElhinney, Christian C. MD ~ CC: Perry Saucedo DATE OF SERVICE: 12/17/2019 PROCEDURE PERFORMED: Upper endoscopy with biopsies. HISTORY OF PRESENT ILLNESS: The patient is a 74-year-old male with a history of Last's esophagus and gastroesophageal reflux disease. He is currently taking Protonix on a regular basis. Denies any dysphagia, nausea or vomiting. Last upper endoscopy with biopsy showed Last's and no dysplasia 3 years ago. He is here for routine followup. DESCRIPTION OF PROCEDURE: The risks and benefits of the procedure were explained to the patient, those risks including but not limited to bleeding, perforation and the risk of sedation. He understood these risks and gave informed consent. Sedation was given using propofol per anesthesia. Next, using a standard Olympus upper endoscope, the scope was placed in the patient's mouth and advanced under direct vision through the esophagus, stomach and into the second portion of the duodenum. The larynx was normal in appearance. The upper and mid esophagus was normal. In the distal esophagus, once again approximately 3 cm segment of Last's esophagus was noted. Random biopsies were obtained. No evidence of stricture or esophagitis. Upon entering the stomach, a small hiatal hernia was once again noted. Overall, the gastric mucosa was normal. The pylorus was normal and patent. The duodenal bulb, first and second portion were all normal. The scope was then withdrawn and the procedure terminated. The patient tolerated the procedure well. IMPRESSION: 1. 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 2. Small hiatal hernia. 3. Otherwise, normal upper endoscopy. RECOMMENDATIONS: 1. Await biopsy results. 2. Continue PPI therapy. [facility] [address] [place] [address] PROCEDURE REPORT Name: KASI EVERETT Room #: REG MARKEL Castillo#: [id number] Admission: 12/17/19 Attend Phys: Perry Gonzalez Discharge: Date of : 45 Report #: [id number] Thank you for allowing me to participate in his care. <ELECTRONICALLY SIGNED> By: Perry Howe MD 12/22/19 0845 1129 1344 Perry Howe MD /nt
== END | disposition home or self-care (01) ==
LOC: GI 09:36
PROVIDERS: ATTEND Specialist
DX: K22.70 Barrett's esophagus without dysplasia (principal); K21.0 Gastro-esophageal reflux disease with esophagitis; K44.9 Diaphragmatic hernia without obstruction or gangrene; I11.0 Hypertensive heart disease with heart failure; I50.9 Heart failure, unspecified; E11.9 Type 2 diabetes mellitus without complications; E78.00 Pure hypercholesterolemia, unspecified; E78.5 Hyperlipidemia, unspecified; I73.9 Peripheral vascular disease, unspecified; Z20.828 Contact with and (suspected) exposure to other viral communicable diseases; Z79.899 Other long term (current) drug therapy; Z86.73 Personal history of transient ischemic attack (TIA), and cerebral infarction without residual deficits; Z87.891 Personal history of nicotine dependence; Z98.890 Other specified postprocedural states
CPT/HCPCS: 62110; 62900

== ENCOUNTER → 2020-06-05 | Outpatient (CLI) | payer OTHER, BC | LOC: SJCVC 14:59 | PROVIDERS: ATTEND Internal Medicine Cardiovascular Disease | DX: R94.31 Abnormal electrocardiogram [ECG] [EKG] (principal); I25.10 Atherosclerotic heart disease of native coronary artery without angina pectoris; E78.00 Pure hypercholesterolemia, unspecified; I73.9 Peripheral vascular disease, unspecified; E08.00 Diabetes mellitus due to underlying condition with hyperosmolarity without nonketotic hyperglycemic-hyperosmolar coma (NKHHC); I13.0 Hypertensive heart and chronic kidney disease with heart failure and stage 1 through stage 4 chronic kidney disease, or unspecified chronic kidney disease; I50.9 Heart failure, unspecified; N18.9 Chronic kidney disease, unspecified; I65.23 Occlusion and stenosis of bilateral carotid arteries; I42.8 Other cardiomyopathies; D68.59 Other primary thrombophilia; Z98.890 Other specified postprocedural states; Z79.899 Other long term (current) drug therapy; Z87.891 Personal history of nicotine dependence ==

== ENCOUNTER → 2020-12-26 | Outpatient (CLI) | payer BC, OTHER | LOC: SJCVCIMAG 07:42 | PROVIDERS: ATTEND Internal Medicine Cardiovascular Disease | DX: I08.8 Other rheumatic multiple valve diseases (principal); I25.10 Atherosclerotic heart disease of native coronary artery without angina pectoris; I13.0 Hypertensive heart and chronic kidney disease with heart failure and stage 1 through stage 4 chronic kidney disease, or unspecified chronic kidney disease; E11.22 Type 2 diabetes mellitus with diabetic chronic kidney disease; I50.9 Heart failure, unspecified; N18.9 Chronic kidney disease, unspecified; I42.9 Cardiomyopathy, unspecified; E78.00 Pure hypercholesterolemia, unspecified; I73.9 Peripheral vascular disease, unspecified; I65.23 Occlusion and stenosis of bilateral carotid arteries; M79.605 Pain in left leg; M79.604 Pain in right leg; Z79.899 Other long term (current) drug therapy; Z87.891 Personal history of nicotine dependence ==

== ENCOUNTER → 2021-01-24 | Outpatient (CLI) | payer OTHER, BC | LOC: SJCVCIMAG 08:04 | PROVIDERS: ATTEND Internal Medicine Cardiovascular Disease | DX: I70.203 Unspecified atherosclerosis of native arteries of extremities, bilateral legs (principal); I25.10 Atherosclerotic heart disease of native coronary artery without angina pectoris; I12.9 Hypertensive chronic kidney disease with stage 1 through stage 4 chronic kidney disease, or unspecified chronic kidney disease; E11.22 Type 2 diabetes mellitus with diabetic chronic kidney disease; N18.9 Chronic kidney disease, unspecified; I77.9 Disorder of arteries and arterioles, unspecified; E78.00 Pure hypercholesterolemia, unspecified; I65.23 Occlusion and stenosis of bilateral carotid arteries; M79.604 Pain in right leg; Z87.891 Personal history of nicotine dependence; Z79.899 Other long term (current) drug therapy ==

== ENCOUNTER 2021-06-04 08:23 | Emergency (ER) | payer OTHER ==
[~2021-06-04] VITALS: Ht 182.9 cm; Wt 89.8 kg
[2021-06-04 08:46] LABS: HEMOGLOBIN 9.5 gm/dL (14.0-18.0); MCH 24.5 pg (26.0-34.0); MCHC 30.8 g/dL (28.0-37.0); MCV 79.6 fL (80.0-100.0); PLATELET COUNT 198 thou/uL (150-400); RDW 14.4 % (10.5-14.5)
--- NOTE | 2021-06-04 08:52 | EKG ---
[address] [place] [address] ELECTROCARDIOGRAM REPORT Name: KASI EVERETT IRINA Room #: [facility] M.R.#: [id number] Admission: Attend Phys: Discharge: Date of : 45 Report #: [id number] [facility] ED Test Date: 2021-06-04 Test Time: 08:33:53 Pat Name: KASI EVERETT Department: Room: Gender: M Evp Operations: ADALID : 1945 Requested By: Reyna Lancaster Order Number: [id number] MD: John Fernandez Measurements Intervals [place] Rate: 62 P: 10 RI: 234 QRS: -32 QRSD: 150 T: 167 QT: 436 QTc: 443 Interpretive Statements Sinus rhythm Prolonged RI interval Left bundle branch block Compared to ECG 05/18/2019 05:43:55 First degree AV block now present Left ventricular hypertrophy no longer present Early repolarization no longer present Electronically Signed On 06-04-2021 8:52:09 HOSPICE SUPERINTENDENT by John Fernandez [email or web address] <ELECTRONICALLY SIGNED> By: John Fernandez MD, [facility] 06/04/2152 2 John Fernandez MD, FAC /EPI
[2021-06-04 09:02] LABS: CALCIUM 8.9 mg/dL (8.5-10.1); CREATININE 2.1 mg/dL (0.7-1.3); POTASSIUM 4.4 mmol/L (3.5-5.1)
[2021-06-04 09:11] LABS: ALBUMIN 3.4 g/dL (3.4-5.0); TOTAL BILIRUBIN 0.2 mg/dL (0.2-1.0); TOTAL PROTEIN 7.5 g/dL (6.4-8.2)
[2021-06-04 09:39] LABS: ABSOLUTE NEUTROPHILS 5.2 thou/uL (1.4-8.2); PLATELET ESTIMATE NORMAL
[2021-06-04 10:48] VITALS: BP 180/63
== END 2021-06-04 10:48 | disposition home or self-care (01) ==
LOC: ER 08:23
PROVIDERS: Student in an Organized Health Care Education/Training Program
DX: M25.512 Pain in left shoulder (principal); M75.52 Bursitis of left shoulder; E78.00 Pure hypercholesterolemia, unspecified; K21.9 Gastro-esophageal reflux disease without esophagitis; E11.22 Type 2 diabetes mellitus with diabetic chronic kidney disease; I13.0 Hypertensive heart and chronic kidney disease with heart failure and stage 1 through stage 4 chronic kidney disease, or unspecified chronic kidney disease; N18.4 Chronic kidney disease, stage 4 (severe); Z79.899 Other long term (current) drug therapy; Z87.891 Personal history of nicotine dependence